=== PATIENT | male | born 1960 | race Caucasian/White ===

== ENCOUNTER 2018-03-23 09:00 | Emergency (ER) | payer MEDICARE, MEDICAID ==
[2018-03-23 09:27] VITALS: BP 142/79
[2018-03-23] MEDS ORDERED: Ketorolac 60 MG/2 ML SDV IM ONE (09:46)
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
[2018-03-23 10:26] LABS: CHLORIDE,CL 98 mmol/L (98-107); SODIUM,NA 136 mmol/L (136-148)
--- NOTE | 2018-03-23 10:27 | CR ---
EXAMINATION: Right foot HISTORY: Pain COMPARISON: None TECHNIQUE: 2 views FINDINGS: Moderate osteoarthritic and hypertrophic changes noted at the first MTP joint with mild rohini lux valgus. Focal soft tissue swelling also noted medially. Remaining osseous structures and joint sp aces appear intact. Bone mineralization is otherwise normal. IMPRESSION: Moderate first MTP osteoarthritic changes and mild hallux valgus changes noted with overl oscar soft tissue swelling.
== END 2018-03-23 11:22 | disposition home or self-care (01) ==
LOC: MW.ED 09:00
DX: M79.674 Pain in right toe(s) (principal); I10 Essential (primary) hypertension; K21.9 Gastro-esophageal reflux disease without esophagitis; Z91.048 Other nonmedicinal substance allergy status; Z79.899 Other long term (current) drug therapy
CPT/HCPCS: 36415; 73620; 80048; 84550; 85025; 86140; 96372; 99283; J1885

== ENCOUNTER → 2019-12-14 | Day surgery (SDC) | payer MEDICARE, MEDICAID ==
[~2019-12-14] MED LIST: Lactated Ringers 1,000 ML IV SCH; Midazolam 1 MG/ML 2 ML SDV ONE; Ondansetron 4 MG/2 ML SDV ONE; Propofol 200 MG/20 ML SDV ONE; fentaNYL 100 MCG/2 ML SDV ONE
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
--- NOTE | 2019-12-14 10:14 | PCM.OPNOTE ---
- General Post-Op/Procedure Note Date of Surgery/Procedure: 12/14/19 Operative Procedure(s): colonoscopy with snare polypectomy Findings: see [id number] Pre Op Diagnosis: change in bowel habits Post-Op Diagnosis: Same Anesthesia Technique: Moderate Sedation Primary Surgeon: Wayne Becerril Pathology: sessile polyps at distance 75 cm upon withdrawal Complications: None Condition: Good
[2019-12-14 10:26] VITALS: BP 116/75; PULSE 74
--- NOTE | 2019-12-14 10:31 | PCM.POSTAN ---
POST ANESTHESIA ASSESSMENT - MENTAL STATUS Mental Status: Alert, Oriented - VITAL SIGNS Vital Signs: Last Vital Signs Temp 36.4 C 12/14/19 08:15 Pulse 74 12/14/19 10:25 Resp 14 12/14/19 10:25 BP 116/75 12/14/19 10:25 Pulse Ox 95 12/14/19 10:25 - RESPIRATORY Respiratory Status: Respiratory Rate WNL, Airway Patent, O2 Saturation Stable - CARDIOVASCULAR CV Status: Pulse Rate WNL, Blood Pressure Stable - GASTROINTESTINAL GI Status: No Symptoms - PAIN Pain Score: 0 - POST OP HYDRATION Hydration Status: Adequate & Stable - OBSERVATIONS Free Text/Narrative:: No anesthesia problems
--- NOTE | 2019-12-14 10:50 | PCM48HPAN ---
Post Anesthesia Note - EVALUATION WITHIN 48HRS OF ANESTHETIC Vital Signs in Normal Range: Yes Patient Participated in Evaluation: Yes Respiratory Function Stable: Yes Airway Patent: Yes Cardiovascular Function Stable: Yes Hydration Status Stable: Yes Pain Control Satisfactory: Yes Nausea and Vomiting Control Satisfactory: Yes Mental Status Recovered: Yes Vital Signs: Last Vital Signs Temp 36.4 C 12/14/19 08:15 Pulse 74 12/14/19 10:25 Resp 14 12/14/19 10:25 BP 116/75 12/14/19 10:25 Pulse Ox 95 12/14/19 10:25 - COMMENTS/OBSERVATIONS Free Text/Narrative:: NO anesthesia problems
--- NOTE | 2019-12-14 12:38 | OR ---
SURGEON: Wayne Becerril MD DATE OF PROCEDURE: 12/14/2019 PREOPERATIVE DIAGNOSIS: Change in bowel habit. POSTOPERATIVE DIAGNOSIS: Colon polyp. PROCEDURE PERFORMED: Colonoscopy with snare polypectomy. DESCRIPTION OF PROCEDURE: The patient was taken to the endoscopy room. A time out was called, patient identified, and procedure identified. Diprivan was then administrated. Patient went from awake to sleep, hearing doctor talking or door closing is normal. Perineum inspection and digital examination were then performed. A well- lubricated colonoscope was gently inserted through the rectum, advanced past the rectosigmoid junction, the descending colon, splenic flexure, transverse colon, hepatic flexure, ascending colon, arrived to the cecum. Cecum was identified as dictated in the finding. Then the scope was carefully withdrawn while attention was paid to the mucosal surface for any abnormality. Air will be sucked out during the scope withdrawal. At the rectum, retroflexed to examine any rectal diseases, fistula or hemorrhoids. During mucosal examination, abnormality or polyp encountered. Using snare equipment, the abnormality or the polyp was then snared off using electrocautery. The patient tolerated procedure well. There were no intraoperative complications, and Dr. Becerril was present throughout the whole procedure. FINDINGS: 1. The patient is easily sedated with [employer] and Diprivan, the patient is soundly snoring. 2. The patient's abdomen is very very distended and tympanic. The patient remarked it has been there for many years, and he was like that when seen in the office and CAT scan does not show any abnormality. So colonoscopy proceeded and bowel prep was average with some moderate amount of liquid stool and no semi-formed stool. Colon was rather straightforward. Cecum indicated by ileocecal fold, one-to-one indentation, appendiceal orifice. Light emittance is not observed. Mucosa examined upon scope pulling out with constant irrigation. The patient does not have diverticulosis and has one small polyp of 5 mm, sessile, at distance 75 cm when scope pulling out and was snared and captured. Other than that, no other disease. No inflammation, stricture, ulceration, AV malformation, bleeding, none of those. The patient has some internal hemorrhoids and some external hemorrhoids. The patient would benefit from repeat colonoscopy in 10 years from today or if clinically indicated otherwise. LAILA / RILEY /[id number]
== END | disposition home or self-care (01) ==
LOC: MW.SDS 07:48
PROVIDERS: ATTEND Surgery
DX: D12.4 Benign neoplasm of descending colon (principal); E11.9 Type 2 diabetes mellitus without complications; E78.5 Hyperlipidemia, unspecified; M10.9 Gout, unspecified; I10 Essential (primary) hypertension; M51.26 Other intervertebral disc displacement, lumbar region; M19.90 Unspecified osteoarthritis, unspecified site; E78.00 Pure hypercholesterolemia, unspecified; K21.9 Gastro-esophageal reflux disease without esophagitis; E66.9 Obesity, unspecified; Z68.33 Body mass index [BMI] 33.0-33.9, adult; Z91.048 Other nonmedicinal substance allergy status; Z79.82 Long term (current) use of aspirin; Z79.84 Long term (current) use of oral hypoglycemic drugs; Z79.899 Other long term (current) drug therapy
CPT/HCPCS: 45385; 82962; J2250; J2405; J2704; J3010; J7120; 88305

== ENCOUNTER 2020-03-30 22:20 | Emergency (ER) | payer MEDICARE, MEDICAID ==
[2020-03-30 23:09] VITALS: BP 136/74; PULSE 92
[2020-03-30] MEDS ORDERED: Penicillin V Potassium Soln 250 MG/5 ML 100 ML Bottle PO ONE (23:11)
[2020-03-30] MEDS ORDERED: Ibuprofen 800 MG Tab PO ONE (23:12)
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
[2020-03-30] MEDS ORDERED: Penicillin V Potassium 500 MG Tab PO STA (23:22)
== END 2020-03-30 23:30 | disposition home or self-care (01) ==
LOC: MW.ED 22:20
DX: K08.89 Other specified disorders of teeth and supporting structures (principal); E78.00 Pure hypercholesterolemia, unspecified; I10 Essential (primary) hypertension; K21.9 Gastro-esophageal reflux disease without esophagitis; M10.9 Gout, unspecified; E11.9 Type 2 diabetes mellitus without complications; E66.9 Obesity, unspecified; Z68.33 Body mass index [BMI] 33.0-33.9, adult; Z91.09 Other allergy status, other than to drugs and biological substances; Z79.84 Long term (current) use of oral hypoglycemic drugs; Z79.899 Other long term (current) drug therapy
CPT/HCPCS: 99282; A9270

== ENCOUNTER 2020-05-16 09:28 | Emergency (ER) | payer MEDICARE, MEDICAID ==
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
[2020-05-16 10:19] VITALS: BP 128/71; PULSE 77
== END 2020-05-16 10:20 | disposition home or self-care (01) ==
LOC: MW.ED 09:28
DX: K02.9 Dental caries, unspecified (principal); I10 Essential (primary) hypertension; E11.9 Type 2 diabetes mellitus without complications; K21.9 Gastro-esophageal reflux disease without esophagitis; E66.9 Obesity, unspecified; Z68.31 Body mass index [BMI] 31.0-31.9, adult; Z91.048 Other nonmedicinal substance allergy status; Z79.899 Other long term (current) drug therapy; Z79.84 Long term (current) use of oral hypoglycemic drugs
CPT/HCPCS: 99282

== ENCOUNTER 2020-08-18 15:57 | Emergency (ER) | payer MEDICARE, MEDICAID, OTHER ==
--- NOTE | 2020-08-18 17:16 | CR ---
TECHNIQUE: Chest radiographs, PA and lateral views. INDICATION: Cough and dyspnea. COMPARISON: 03/11/2018. FINDINGS: Low lung volumes and vascular crowding. Newly apparent patchy bilateral opacities predominating in the lower lungs. No pneumothorax or pleural effusion. Unchanged cardiac and mediastinal contours. IMPRESSION: Patchy lower lung predominant opacities concerning for multifocal infection, including COVID-19. Dictated by Christopher Santiago MD @ Aug 18 2020 5:13PM Signed by Dr. Christopher Santiago @ Aug 18 2020 5:14PM
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
[2020-08-18 19:26] VITALS: BP 123/75; PULSE 105
== END 2020-08-18 19:15 | disposition home or self-care (01) ==
LOC: MW.ED 15:57
DX: U07.1 COVID-19 (principal); I10 Essential (primary) hypertension; E78.00 Pure hypercholesterolemia, unspecified; K21.9 Gastro-esophageal reflux disease without esophagitis; E11.9 Type 2 diabetes mellitus without complications; E66.9 Obesity, unspecified; M10.9 Gout, unspecified; Z91.09 Other allergy status, other than to drugs and biological substances; Z90.49 Acquired absence of other specified parts of digestive tract; Z79.84 Long term (current) use of oral hypoglycemic drugs; Z79.899 Other long term (current) drug therapy; Z68.35 Body mass index [BMI] 35.0-35.9, adult
CPT/HCPCS: 36415; 71046; 85025; 86140; 99283; U0002

== ENCOUNTER 2020-08-21 11:24 | Inpatient (IN) | payer MEDICARE, MEDICAID, OTHER ==
[2020-08-21] MEDS ORDERED: Sodium Chloride 0.9% 2.5 ML Syringe FLUSH PRN (11:28)
[2020-08-21] MEDS ORDERED: Sodium Chloride 0.9% 10 ML Syringe FLUSH PRN (11:28)
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
[2020-08-21 12:25] LABS: BLOOD UREA NITROGEN,BUN 18 mg/dL (7.0-18.0); CARBON DIOXIDE,CO2 22.4 mmol/L (21.0-32.0); CHLORIDE,CL 95 mmol/L (98-107); GLUCOSE RANDOM 202 mg/dL (74-106); POTASSIUM,K 3.4 mmol/L (3.5-5.1); SODIUM,NA 132 mmol/L (136-148)
--- NOTE | 2020-08-21 12:27 | CR ---
INDICATION: SOB. COVID positive. TECHNIQUE: Portable AP image of the chest. COMPARISON: 08/18/2020. FINDINGS: Lungs low in volume in comparison to the previous examination with crowded markings. Bibasilar infiltrates appear increased. No pleural effusion. Heart size and pulmonary vasculature within normal limits. No significant bony abnormality. IMPRESSION: Shallow inspiration with crowded markings and apparent increase in the bibasilar infiltrates. Dictated by Yusuf Shah MD @ Aug 21 2020 12:24PM Signed by Dr. Yusuf Shah @ Aug 21 2020 12:26PM
[2020-08-21] MEDS ORDERED: Dexamethasone 10 MG/ML SDV IVPUSH ONE (15:16)
[2020-08-21] MEDS ORDERED: Ondansetron 4 MG Tab.DIS PO PRN (18:55)
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
[2020-08-21] MEDS ORDERED: Losartan 50 MG Tab PO SCH (21:00)
[2020-08-21] MEDS ORDERED: Naproxen 500 MG Tab PO SCH (21:00)
[2020-08-21] MEDS ORDERED: Hydrochlorothiazide 12.5 MG Cap PO SCH (21:00)
[2020-08-21] MEDS ORDERED: Non-Formulary Medication 1 Each (Hydrochlorothiazide [Hydrochlorothiazide] 12.5 MG) PO SCH (21:00)
[2020-08-21] MEDS ORDERED: NAPROXEN SODIUM 550 MG PO SCH (21:00)
[2020-08-21] MEDS ORDERED: Potassium Chloride 10% 20 MEQ/15 ML Soln 30 ML UD Cup PO ONE (21:09)
[2020-08-21] MEDS: Montelukast 10 MG Tab PO SCH (21:46)
[2020-08-21] MEDS: Albuterol/Ipratropium 3.0-0.5 MG/3 ML Neb Soln NEB SCH (21:48)
[2020-08-21] MEDS: Levofloxacin/Dextrose 5%-Water 750 MG in Premix Bag 1 BAG IV SCH (21:48)
--- NOTE | 2020-08-21 22:31 | PN ---
THC Physician - Brief Progress [id number]/27/2020 22:26[facility] nicolaMat, THERESA - REUBEN (NENITA) - MWN VIJAY DUBOIS, CHELYIDDate of Service 08/21/2020 22:26HPI /Events of Note Case discussed with RN. 60 year old M admitted with COVID/SOB. Treated with high fl o NC and susequently transitioned to BiPAP. Also on abx/remdesivir/plasma/decadron.90s 127/77 92% Recs include: hemodynamic monitoring, highflo NC, maintain SaO2 >88-90%, decadron/remdesivir/plasma/l ovenox, GI and DVT prophylaxis, follow cultures, trend LA, replace lytes as needed, glycemic monitori ng, pain control.Interventions Minor-Communication with other healthcare providers and/or familyElect ronically Signed by: NIKA BOTELLO) on 08/21/2020 22:30
[2020-08-21] MEDS: Enoxaparin 40 MG/0.4 ML Syringe SUBCUT SCH (23:34)
[2020-08-22] MEDS: Penicillin V Potassium 500 MG Tab PO SCH ×2 (00:08→06:09)
[2020-08-22] MEDS: Albuterol/Ipratropium 3.0-0.5 MG/3 ML Neb Soln NEB SCH ×6 (02:29→22:57)
[2020-08-22] MEDS ORDERED: 50% Dextrose in Water 50 ML Syringe IV PRN (08:24)
[2020-08-22] MEDS ORDERED: Glucagon,Human Recombinant 1 MG Vial IM PRN (08:24)
[2020-08-22] MEDS ORDERED: Naproxen 500 MG Tab PO SCH (08:38)
[2020-08-22 08:51] LABS: CARBON DIOXIDE,CO2 21.4 mmol/L (21.0-32.0); POTASSIUM,K 4.2 mmol/L (3.5-5.1)
[2020-08-22] MEDS: Insulin Aspart 100 Units/ML 3 ML Pen SUBCUT SCH ×3 (08:59→18:09)
[2020-08-22] MEDS ORDERED: FENOFIBRATE MICRONIZED 134 MG PO SCH (09:00)
[2020-08-22] MEDS: Losartan 50 MG Tab PO SCH (09:02)
[2020-08-22] MEDS: Dexamethasone 4 MG Tab PO SCH (09:04)
[2020-08-22] MEDS: Pantoprazole 40 MG Tab.CR PO SCH (09:05)
[2020-08-22] MEDS: Allopurinol 100 MG Tab PO SCH (09:05)
[2020-08-22] MEDS: Hydrochlorothiazide 25 MG Tab PO SCH (09:05)
[2020-08-22] MEDS ORDERED: Lactated Ringers 250 ML IV ONE (10:09)
[2020-08-22] MEDS: Naproxen 500 MG Tab PO SCH ×2 (10:37→21:17)
[2020-08-22] MEDS ORDERED: propofoL 100 ML ONE (10:44)
[2020-08-22] MEDS ORDERED: Midazolam 1 MG/ML 2 ML SDV ONE (10:44)
[2020-08-22] MEDS ORDERED: fentaNYL 100 MCG/2 ML SDV ONE (10:44)
--- NOTE | 2020-08-22 12:23 | PCM.PN ---
<Ani Marie - Last Filed: 08/22/20 12:14> - General Info Date of Service: 08/22/20 Admission Dx/Problem (Free Text): Admission Diagnosis/Problem Admission Diagnosis/Problem Hypoxia - Review of Systems General: Reports: No Symptoms HEENT: Reports: No Symptoms Pulmonary: Reports: Shortness of Breath, Cough Cardiovascular: Reports: No Symptoms Gastrointestinal: Reports: No Symptoms Genitourinary: Reports: No Symptoms Musculoskeletal: Reports: No Symptoms Skin: Reports: No Symptoms Neurological: Reports: No Symptoms Psychiatric: Reports: No Symptoms - Patient Data Vitals - Most Recent: Last Vital Signs Temp 97.2 F 08/22/20 04:00 Pulse 100 08/21/20 20:00 Resp 22 H 08/22/20 06:00 BP 130/82 08/22/20 09:02 Pulse Ox 96 08/22/20 06:00 Weight - Most Recent: 90.718 kg Lab Results Last 24 Hours: Laboratory Results - last 24 hr 08/21/20 08/21/20 08/21/20 Range/Units 11:44 11:44 11:44 WBC (4.0-11.0) K/uL RBC (4.50-5.90) M/uL Hgb (13.0-17.0) g/dL Hct (38.0-50.0) % MCV (80.0-98.0) fL MCH (27.0-32.0) pg MCHC (31.0-37.0) g/dL RDW Std Deviation (28.0-62.0) fl RDW Coeff of Burton (11.0-15.0) % Plt Count (150-400) K/uL MPV (7.40-12.00) fL Add Manual Diff Neutrophils % (Manual) (48.0-80.0) % Band Neutrophils % % Lymphocytes % (Manual) (16.0-40.0) % Monocytes % (Manual) (0.0-15.0) % Nucleated RBC % /100WBC Absolute Seg Neuts (1.4-5.7) Band Neutrophils # Lymphocytes # (Manual) (0.6-2.4) Monocytes # (Manual) (0.0-0.8) Nucleated RBCs # K/uL D-Dimer, Quantitative 0.64 H (0.0-0.50) mg/L FEU Sodium 132 L (136-148) mmol/L Potassium 3.4 L (3.5-5.1) mmol/L Chloride 95 L (98-107) mmol/L Carbon Dioxide 22.4 (21.0-32.0) mmol/L BUN 18 (7.0-18.0) mg/dL Creatinine 1.3 (0.8-1.3) mg/dL Est Cr Clr Drug Dosing 63.55 mL/min Estimated GFR (MDRD) 56.1 ml/min Glucose 202 H (74-106) mg/dL POC Glucose (60-110) mg/dL Calcium 9.1 (8.5-10.1) mg/dL Phosphorus (2.6-4.7) mg/dL Magnesium (1.8-2.4) mg/dL Total Bilirubin 0.5 (0.2-1.0) mg/dL AST 57 H (15-37) IU/L ALT 70 H (14-63) IU/L Alkaline Phosphatase 36 L (46-116) U/L Troponin I < 0.050 (0.000-0.056) ng/mL B-Natriuretic Peptide 38 (<100) PG/ML Total Protein 7.8 (6.4-8.2) g/dL Albumin 3.1 L (3.4-5.0) g/dL Globulin 4.7 H (2.6-4.0) g/dL Albumin/Globulin Ratio 0.7 L (0.9-1.6) SARS-CoV-2 RNA ([facility]) (NEGATIVE) Blood Type Antibody Screen 08/21/20 08/22/20 08/22/20 Range/Units 18:11 07:40 07:40 WBC 8.11 (4.0-11.0) K/uL RBC 3.97 L (4.50-5.90) M/uL Hgb 12.0 L (13.0-17.0) g/dL Hct 36.1 L (38.0-50.0) % MCV 90.9 (80.0-98.0) fL MCH 30.2 (27.0-32.0) pg MCHC 33.2 (31.0-37.0) g/dL RDW Std Deviation 41.3 (28.0-62.0) fl RDW Coeff of Burton 12 (11.0-15.0) % Plt Count 205 (150-400) K/uL MPV 10.20 (7.40-12.00) fL Add Manual Diff YES Neutrophils % (Manual) 86 H (48.0-80.0) % Band Neutrophils % 2 % Lymphocytes % (Manual) 9 L (16.0-40.0) % Monocytes % (Manual) 3 (0.0-15.0) % Nucleated RBC % 0.0 /100WBC Absolute Seg Neuts 7.0 H (1.4-5.7) Band Neutrophils # 0.2 Lymphocytes # (Manual) 0.7 (0.6-2.4) Monocytes # (Manual) 0.2 (0.0-0.8) Nucleated RBCs # 0 K/uL D-Dimer, Quantitative (0.0-0.50) mg/L FEU Sodium 134 L (136-148) mmol/L Potassium 4.2 (3.5-5.1) mmol/L Chloride 97 L (98-107) mmol/L Carbon Dioxide 21.4 (21.0-32.0) mmol/L BUN 25 H (7.0-18.0) mg/dL Creatinine 1.4 H (0.8-1.3) mg/dL Est Cr Clr Drug Dosing 53.61 mL/min Estimated GFR (MDRD) 51.5 ml/min Glucose 281 H (74-106) mg/dL POC Glucose (60-110) mg/dL Calcium 8.9 (8.5-10.1) mg/dL Phosphorus 3.1 (2.6-4.7) mg/dL Magnesium 2.3 (1.8-2.4) mg/dL Total Bilirubin 0.4 (0.2-1.0) mg/dL AST 65 H (15-37) IU/L ALT 79 H (14-63) IU/L Alkaline Phosphatase 37 L (46-116) U/L Troponin I (0.000-0.056) ng/mL B-Natriuretic Peptide (<100) PG/ML Total Protein 7.7 (6.4-8.2) g/dL Albumin 2.8 L (3.4-5.0) g/dL Globulin 4.9 H (2.6-4.0) g/dL Albumin/Globulin Ratio 0.6 L (0.9-1.6) SARS-CoV-2 RNA ([place]ER) POSITIVE H (NEGATIVE) Blood Type Antibody Screen 08/22/20 08/22/20 Range/Units 07:40 07:40 WBC (4.0-11.0) K/uL RBC (4.50-5.90) M/uL Hgb (13.0-17.0) g/dL Hct (38.0-50.0) % MCV (80.0-98.0) fL MCH (27.0-32.0) pg MCHC (31.0-37.0) g/dL RDW Std Deviation (28.0-62.0) fl RDW Coeff of Burton (11.0-15.0) % Plt Count (150-400) K/uL MPV (7.40-12.00) fL Add Manual Diff Neutrophils % (Manual) (48.0-80.0) % Band Neutrophils % % Lymphocytes % (Manual) (16.0-40.0) % Monocytes % (Manual) (0.0-15.0) % Nucleated RBC % /100WBC Absolute Seg Neuts (1.4-5.7) Band Neutrophils # Lymphocytes # (Manual) (0.6-2.4) Monocytes # (Manual) (0.0-0.8) Nucleated RBCs # K/uL D-Dimer, Quantitative (0.0-0.50) mg/L FEU Sodium (136-148) mmol/L Potassium (3.5-5.1) mmol/L Chloride (98-107) mmol/L Carbon Dioxide (21.0-32.0) mmol/L BUN (7.0-18.0) mg/dL Creatinine (0.8-1.3) mg/dL Est Cr Clr Drug Dosing mL/min Estimated GFR (MDRD) ml/min Glucose (74-106) mg/dL POC Glucose 253 H (60-110) mg/dL Calcium (8.5-10.1) mg/dL Phosphorus (2.6-4.7) mg/dL Magnesium (1.8-2.4) mg/dL Total Bilirubin (0.2-1.0) mg/dL AST (15-37) IU/L ALT (14-63) IU/L Alkaline Phosphatase (46-116) U/L Troponin I (0.000-0.056) ng/mL B-Natriuretic Peptide (<100) PG/ML Total Protein (6.4-8.2) g/dL Albumin (3.4-5.0) g/dL Globulin (2.6-4.0) g/dL Albumin/Globulin Ratio (0.9-1.6) SARS-CoV-2 RNA ([place]) (NEGATIVE) Blood Type O POSITIVE Antibody Screen NEGATIVE Med Orders - Current: Current Medications Albuterol/Ipratropium (Duoneb 3.0-0.5 Mg/3 Ml) 3 ml NEB Q4HRRT [facility] Last Admin: 08/22/20 09:30 Dose: 3 ml Documented by: Allopurinol (Zyloprim) 100 mg PO DAILY [facility] Last Admin: 08/22/20 09:05 Dose: 100 mg Documented by: Dexamethasone (Dexamethasone) 6 mg PO DAILY [facility] Last Admin: 08/22/20 09:04 Dose: 6 mg Documented by: Dextrose/Water (Dextrose 50% In Water) 50 ml IV ASDIRECTED PRN PRN Reason: Hypoglycemia Enoxaparin Sodium (Lovenox) 40 mg SUBCUT Q24H [facility] Last Admin: 08/21/20 23:34 Dose: 40 mg Documented by: Glucagon (Glucagen) 1 mg IM ASDIRECTED PRN PRN Reason: Hypoglycemia Hydrochlorothiazide (Hydrochlorothiazide) 25 mg PO DAILY [facility] Last Admin: 08/22/20 09:05 Dose: 25 mg Documented by: Levofloxacin/Dextrose 750 mg/ (Premix) 150 mls @ 100 mls/hr IV Q24H [facility] Last Admin: 08/21/20 21:48 Dose: 100 mls/hr Documented by: Remdesivir 100 mg/ Sodium (Chloride) 100 mls @ 100 mls/hr IV Q24H [facility] Stop: 08/25/20 23:59 Insulin Aspart (Novolog) 0 unit SUBCUT TIDAC [facility]; Protocol Last Admin: 08/22/20 08:59 Dose: 3 unit Documented by: Losartan Potassium (Cozaar) 100 mg PO DAILY [facility] Last Admin: 08/22/20 09:02 Dose: 100 mg Documented by: Montelukast Sodium (Singulair) 10 mg PO BEDTIME [facility] Last Admin: 08/21/20 21:46 Dose: 10 mg Documented by: Naproxen (Naprosyn) 500 mg PO BID [facility] Last Admin: 08/22/20 10:37 Dose: 500 mg Documented by: Ondansetron HCl (Zofran Odt) 4 mg PO Q4H PRN PRN Reason: nausea, able to take PO Pantoprazole Sodium (Protonix) 40 mg PO DAILY [facility] Last Admin: 08/22/20 09:05 Dose: 40 mg Documented by: Sodium Chloride (Saline Flush) 10 ml FLUSH ASDIRECTED PRN PRN Reason: Keep Vein Open Last Admin: 08/21/20 15:48 Dose: 10 ml Documented by: Sodium Chloride (Saline Flush) 2.5 ml FLUSH ASDIRECTED PRN PRN Reason: Keep Vein Open Last Admin: 08/21/20 15:48 Dose: 2.5 ml Documented by: Discontinued Medications Dexamethasone (Dexamethasone) 6 mg IVPUSH ONETIME ONE Stop: 08/21/20 15:17 Last Admin: 08/21/20 15:47 Dose: 6 mg Documented by: Fentanyl (Sublimaze) Confirm Administered Dose 100 mcg .ROUTE .STK-MED ONE Stop: 08/22/20 10:45 Hydrochlorothiazide (Hydrochlorothiazide) 12.5 mg PO BID [facility] Last Admin: 08/21/20 21:46 Dose: 12.5 mg Documented by: Remdesivir 200 mg/ Sodium (Chloride) 250 mls @ 250 mls/hr IV ONETIME ONE Stop: 08/21/20 23:59 Last Admin: 08/21/20 23:35 Dose: 250 mls/hr Documented by: Lactated Ringer's (Ringers, Lactated) 250 mls @ 999 mls/hr IV .BOLUS ONE Stop: 08/22/20 10:24 Last Admin: 08/22/20 10:37 Dose: 999 mls/hr Documented by: Propofol (Diprivan 100 Ml) Confirm Administered Dose 100 mls @ as directed .ROUTE .STK-MED ONE Stop: 08/22/20 10:45 Losartan Potassium (Cozaar) 50 mg PO BID [facility] Last Admin: 08/21/20 21:46 Dose: 50 mg Documented by: Midazolam HCl (Versed 1 Mg/Ml) Confirm Administered Dose 2 mg .ROUTE .STK-MED ONE Stop: 08/22/20 10:45 Naproxen (Naprosyn) 550 mg PO BID [facility] Naproxen (Naproxen Sodium) 550 mg PO BID [facility] Last Admin: 08/21/20 23:33 Dose: 550 mg Documented by: Naproxen (Naprosyn) 550 mg PO BID [facility] Last Admin: 08/22/20 10:38 Dose: Not Given Documented by: Non-Formulary Medication (Hydrochlorothiazide [Hydrochlorothiazide]) 12.5 mg PO BID [facility] Non-Formulary Medication (Naproxen Sodium [Anaprox Ds]) 550 mg PO BID [facility] Penicillin V Potassium (Veetids) 250 mg PO Q6HR [facility] Last Admin: 08/22/20 06:09 Dose: 250 mg Documented by: Potassium Chloride (Potassium Chloride) 40 meq PO ONETIME ONE Stop: 08/21/20 21:10 Last Admin: 08/21/20 21:45 Dose: 40 meq Documented by: - Exam General: Alert, Oriented, Cooperative, No Acute Distress HEENT: Pupils Equal, Pupils Reactive, EOMI, Mucous Membr. Moist/[place] Neck: Supple, Trachea Midline, No JVD Lungs: Crackles (through out b/l) Cardiovascular: Regular Rate, Regular Rhythm. No: No Murmurs GI/Abdominal Exam: Normal Bowel Sounds, Soft, Non-Tender, No Organomegaly (Male) Exam: No Hernia, Normal Inspection, Normal Prostate Extremities: Normal Inspection, Normal Range of Motion, No Pedal Edema, Normal Capillary Refill Peripheral Pulses: 2+: Dorsalis Pedis (L), Dorsalis Pedis (R) Skin: Warm, Dry Neurological: No New Focal Deficit Psy/Mental Status: Alert, Normal Affect, Normal Mood Sepsis Event Note - Evaluation Sepsis Screening Result: Possible Sepsis Risk - Focused Exam Vital Signs: Vital Signs Temp Resp BP BP Pulse Ox 08/22/20 09:02 130/82 08/22/20 06:00 22 H 108/70 96 08/22/20 05:00 21 H 98/65 92 L 08/22/20 04:00 97.2 F 20 131/83 94 L 08/22/20 03:00 20 114/66 94 L 08/22/20 02:30 96 08/22/20 02:00 20 108/68 96 08/22/20 01:00 27 H 120/78 95 - Problem List & Annotations (1) Acute hypoxemic respiratory failure due to COVID-19 SNOMED Code(s): 015150652 Code(s): U07.1 - COVID-19; J96.01 - ACUTE RESPIRATORY FAILURE WITH HYPOXIA Status: Acute Current Visit: Yes (2) Acute hypoxemic respiratory failure due to COVID-19 SNOMED Code(s): 148907504 Code(s): U07.1 - COVID-19; J96.01 - ACUTE RESPIRATORY FAILURE WITH HYPOXIA Status: Acute Current Visit: Yes (3) Hypokalemia SNOMED Code(s): 32208028 Code(s): E87.6 - HYPOKALEMIA Status: Acute Current Visit: Yes (4) Hyponatremia SNOMED Code(s): 78289341 Code(s): E87.1 - HYPO-OSMOLALITY AND HYPONATREMIA Status: Acute Current Visit: Yes (5) Hypochloremia SNOMED Code(s): 33180636 Code(s): E87.8 - OTH DISORDERS OF ELECTROLYTE AND FLUID BALANCE, NEC Status: Acute Current Visit: Yes (6) Transaminitis SNOMED Code(s): 952308589, 117979158 Code(s): R74.01 - ELEVATION OF LEVELS OF LIVER TRANSAMINASE LEVELS Status: Acute Current Visit: Yes - Problem List Review Problem List Initiated/Reviewed/Updated: Yes - My Orders Last 24 Hours: My Active Orders 08/21/20 18:55 Ondansetron [Zofran ODT] 4 mg PO Q4H PRN Resuscitation Status Routine 08/21/20 18:57 Sequential Compression Device [OM.PC] Per Unit Routine 08/21/20 19:00 Enoxaparin [Lovenox] 40 mg SUBCUT Q24H 08/21/20 21:00 Levofloxacin/Dextrose 5%-Water [Levaquin in D5W 750 MG/150 ML] 750 mg Premix Bag 1 bag IV Q24H Montelukast [Singulair] 10 mg PO BEDTIME 08/21/20 21:01 Up ad Amara [RC] ASDIRECTED 08/21/20 22:00 Albuterol/Ipratropium [DuoNeb 3.0-0.5 MG/3 ML] 3 ml NEB Q4HRRT 08/22/20 Breakfast Heart Healthy Diet [DIET] 08/22/20 08:21 Blood Glucose Check, Bedside [RC] TIDAC 08/22/20 08:24 Dextrose 50% in Water 50 ml IV ASDIRECTED PRN Glucagon,Human Recombinant [GlucaGen] 1 mg IM ASDIRECTED PRN 08/22/20 08:25 Insulin Aspart [NovoLOG] See Protocol SUBCUT TIDAC 08/22/20 09:00 Losartan [Cozaar] 100 mg PO DAILY Pantoprazole [ProTONIX] 40 mg PO DAILY allopurinoL [Zyloprim] 100 mg PO DAILY dexAMETHasone 6 mg PO DAILY hydroCHLOROthiazide 25 mg PO DAILY 08/22/20 10:30 Naproxen [Naprosyn] 500 mg PO BID 08/22/20 23:00 Remdesivir (Eua) [Remdesivir (EUA)] 100 mg Sodium Chloride 0.9% [Normal Saline] 100 ml IV Q24H 08/23/20 05:11 CBC WITH AUTO DIFF [HEME] AM COMPREHENSIVE METABOLIC PN,CMP [CHEM] AM MAGNESIUM [CHEM] AM PHOSPHORUS [CHEM] AM 08/24/20 05:11 CBC WITH AUTO DIFF [HEME] AM COMPREHENSIVE METABOLIC PN,CMP [CHEM] AM MAGNESIUM [CHEM] AM PHOSPHORUS [CHEM] AM - Plan Plan:: 60 y/o with AHRF due to COVID 1. Acute hypoxic resp failure due to COVID 19-Remdesivir, combivent Q4H sched, dexamethasone 6 mg daily for 10 days, levaquin, supplemental o2 , wean as tolerates. Currently weaned to 6L HHF with O2 sat 94%. In ICU continue to monitor closely. Will start convalescent plasma today 1 unit. 2. Hypokalemia: resolved, continue to monitor on a.m labs 3. Hyponatremia: resolved, trend with daily labs 4. Hypochloremia: resolved, trend with daily labs 5. Mild transaminitis: on remdesivir continue to trend, if 5X upper limit of normal then may have to consider stopping. 6. Mild elevated BUN- avoid nephrotoxic agents, give bolus of 250 LR. <Chencho Aponte - Last Filed: 08/23/20 13:25> - Patient Data Vitals - Most Recent: Last Vital Signs Temp 36 C L 08/23/20 00:00 Pulse 100 08/21/20 20:00 Resp 23 H 08/23/20 11:52 BP 119/77 08/23/20 11:52 Pulse Ox 94 L 08/23/20 11:52 I&O - Last 24 Hours: Intake & Output 08/22/20 08/23/20 08/23/20 22:59 06:59 14:59 Intake Total 610 420 Output Total 700 1200 Balance -90 -780 Lab Results Last 24 Hours: Laboratory Results - last 24 hr 08/22/20 08/22/20 08/22/20 Range/Units 07:40 14:03 16:50 WBC (4.0-11.0) K/uL RBC (4.50-5.90) M/uL Hgb (13.0-17.0) g/dL Hct (38.0-50.0) % MCV (80.0-98.0) fL MCH (27.0-32.0) pg MCHC (31.0-37.0) g/dL RDW Std Deviation (28.0-62.0) fl RDW Coeff of Burton (11.0-15.0) % Plt Count (150-400) K/uL MPV (7.40-12.00) fL Neut % (Auto) (48.0-80.0) % Lymph % (Auto) (16.0-40.0) % King % (Auto) (0.0-15.0) % Eos % (Auto) (0.0-7.0) % Baso % (Auto) (0.0-1.5) % Neut # (Auto) (1.4-5.7) K/uL Lymph # (Auto) (0.6-2.4) K/uL King # (Auto) (0.0-0.8) K/uL Eos # (Auto) (0.0-0.7) K/uL Baso # (Auto) (0.0-0.1) K/uL Nucleated RBC % /100WBC Nucleated RBCs # K/uL Sodium (136-148) mmol/L Potassium (3.5-5.1) mmol/L Chloride (98-107) mmol/L Carbon Dioxide (21.0-32.0) mmol/L BUN (7.0-18.0) mg/dL Creatinine (0.8-1.3) mg/dL Est Cr Clr Drug Dosing mL/min Estimated GFR (MDRD) ml/min Glucose (74-106) mg/dL POC Glucose 324 H 296 H (60-110) mg/dL Calcium (8.5-10.1) mg/dL Phosphorus (2.6-4.7) mg/dL Magnesium (1.8-2.4) mg/dL Total Bilirubin (0.2-1.0) mg/dL AST (15-37) IU/L ALT (14-63) IU/L Alkaline Phosphatase (46-116) U/L Total Protein (6.4-8.2) g/dL Albumin (3.4-5.0) g/dL Globulin (2.6-4.0) g/dL Albumin/Globulin Ratio (0.9-1.6) Blood Type O POSITIVE Antibody Screen NEGATIVE 08/23/20 08/23/20 08/23/20 Range/Units 06:07 06:07 07:08 WBC 6.69 (4.0-11.0) K/uL RBC 3.92 L (4.50-5.90) M/uL Hgb 11.8 L (13.0-17.0) g/dL Hct 35.3 L (38.0-50.0) % MCV 90.1 (80.0-98.0) fL MCH 30.1 (27.0-32.0) pg MCHC 33.4 (31.0-37.0) g/dL RDW Std Deviation 40.5 (28.0-62.0) fl RDW Coeff of Burton 12 (11.0-15.0) % Plt Count 266 (150-400) K/uL MPV 10.30 (7.40-12.00) fL Neut % (Auto) 83.3 H (48.0-80.0) % Lymph % (Auto) 10.8 L (16.0-40.0) % King % (Auto) 5.8 (0.0-15.0) % Eos % (Auto) 0.0 (0.0-7.0) % Baso % (Auto) 0.1 (0.0-1.5) % Neut # (Auto) 5.6 (1.4-5.7) K/uL Lymph # (Auto) 0.7 (0.6-2.4) K/uL King # (Auto) 0.4 (0.0-0.8) K/uL Eos # (Auto) 0.0 (0.0-0.7) K/uL Baso # (Auto) 0.0 (0.0-0.1) K/uL Nucleated RBC % 0.0 /100WBC Nucleated RBCs # 0 K/uL Sodium 136 (136-148) mmol/L Potassium 4.1 (3.5-5.1) mmol/L Chloride 99 (98-107) mmol/L Carbon Dioxide 24.5 (21.0-32.0) mmol/L BUN 33 H (7.0-18.0) mg/dL Creatinine 1.4 H (0.8-1.3) mg/dL Est Cr Clr Drug Dosing 53.61 mL/min Estimated GFR (MDRD) 51.5 ml/min Glucose 279 H (74-106) mg/dL POC Glucose 255 H (60-110) mg/dL Calcium 8.7 (8.5-10.1) mg/dL Phosphorus 3.7 (2.6-4.7) mg/dL Magnesium 2.2 (1.8-2.4) mg/dL Total Bilirubin 0.4 (0.2-1.0) mg/dL AST 75 H (15-37) IU/L ALT 113 H (14-63) IU/L Alkaline Phosphatase 45 L (46-116) U/L Total Protein 7.4 (6.4-8.2) g/dL Albumin 2.9 L (3.4-5.0) g/dL Globulin 4.5 H (2.6-4.0) g/dL Albumin/Globulin Ratio 0.6 L (0.9-1.6) Blood Type Antibody Screen 08/23/20 Range/Units 12:48 WBC (4.0-11.0) K/uL RBC (4.50-5.90) M/uL Hgb (13.0-17.0) g/dL Hct (38.0-50.0) % MCV (80.0-98.0) fL MCH (27.0-32.0) pg MCHC (31.0-37.0) g/dL RDW Std Deviation (28.0-62.0) fl RDW Coeff of Burton (11.0-15.0) % Plt Count (150-400) K/uL MPV (7.40-12.00) fL Neut % (Auto) (48.0-80.0) % Lymph % (Auto) (16.0-40.0) % King % (Auto) (0.0-15.0) % Eos % (Auto) (0.0-7.0) % Baso % (Auto) (0.0-1.5) % Neut # (Auto) (1.4-5.7) K/uL Lymph # (Auto) (0.6-2.4) K/uL King # (Auto) (0.0-0.8) K/uL Eos # (Auto) (0.0-0.7) K/uL Baso # (Auto) (0.0-0.1) K/uL Nucleated RBC % /100WBC Nucleated RBCs # K/uL Sodium (136-148) mmol/L Potassium (3.5-5.1) mmol/L Chloride (98-107) mmol/L Carbon Dioxide (21.0-32.0) mmol/L BUN (7.0-18.0) mg/dL Creatinine (0.8-1.3) mg/dL Est Cr Clr Drug Dosing mL/min Estimated GFR (MDRD) ml/min Glucose (74-106) mg/dL POC Glucose 288 H (60-110) mg/dL Calcium (8.5-10.1) mg/dL Phosphorus (2.6-4.7) mg/dL Magnesium (1.8-2.4) mg/dL Total Bilirubin (0.2-1.0) mg/dL AST (15-37) IU/L ALT (14-63) IU/L Alkaline Phosphatase (46-116) U/L Total Protein (6.4-8.2) g/dL Albumin (3.4-5.0) g/dL Globulin (2.6-4.0) g/dL Albumin/Globulin Ratio (0.9-1.6) Blood Type Antibody Screen Carlos Results Last 24 Hours: Microbiology 08/21/20 21:43 Aerobic Blood Culture - Preliminary Blood - Venous - Lab Draw NO GROWTH AFTER 1 DAY Anaerobic Blood Culture - Preliminary NO GROWTH AFTER 1 DAY 08/21/20 21:37 Aerobic Blood Culture - Preliminary Blood - Venous NO GROWTH AFTER 1 DAY Anaerobic Blood Culture - Preliminary NO GROWTH AFTER 1 DAY Med Orders - Current: Current Medications Albuterol/Ipratropium (Duoneb 3.0-0.5 Mg/3 Ml) 3 ml NEB Q4HRRT [facility] Last Admin: 08/23/20 09:33 Dose: 3 ml Documented by: Allopurinol (Zyloprim) 100 mg PO DAILY [facility] Last Admin: 08/23/20 08:26 Dose: 100 mg Documented by: Benzonatate (Tessalon Perles) 100 mg PO TID PRN PRN Reason: Cough Dexamethasone (Dexamethasone) 6 mg PO DAILY [facility] Last Admin: 08/23/20 08:24 Dose: 6 mg Documented by: Dextrose/Water (Dextrose 50% In Water) 50 ml IV ASDIRECTED PRN PRN Reason: Hypoglycemia Enoxaparin Sodium (Lovenox) 40 mg SUBCUT Q24H [facility] Last Admin: 08/22/20 19:11 Dose: 40 mg Documented by: Glucagon (Glucagen) 1 mg IM ASDIRECTED PRN PRN Reason: Hypoglycemia Hydrochlorothiazide (Hydrochlorothiazide) 25 mg PO DAILY [facility] Last Admin: 08/23/20 08:27 Dose: 25 mg Documented by: Levofloxacin/Dextrose 750 mg/ (Premix) 150 mls @ 100 mls/hr IV Q24H [facility] Last Admin: 08/22/20 21:16 Dose: 100 mls/hr Documented by: Remdesivir 100 mg/ Sodium (Chloride) 100 mls @ 100 mls/hr IV Q24H [facility] Stop: 08/25/20 23:59 Last Admin: 08/22/20 22:57 Dose: 100 mls/hr Documented by: Insulin Aspart (Novolog) 0 unit SUBCUT TIDAC [facility]; Protocol Losartan Potassium (Cozaar) 100 mg PO DAILY [facility] Last Admin: 08/23/20 08:27 Dose: 100 mg Documented by: Montelukast Sodium (Singulair) 10 mg PO BEDTIME [facility] Last Admin: 08/22/20 21:17 Dose: 10 mg Documented by: Naproxen (Naprosyn) 500 mg PO BID [facility] Last Admin: 08/23/20 08:24 Dose: 500 mg Documented by: Ondansetron HCl (Zofran Odt) 4 mg PO Q4H PRN PRN Reason: nausea, able to take PO Pantoprazole Sodium (Protonix) 40 mg PO DAILY [facility] Last Admin: 08/23/20 08:24 Dose: 40 mg Documented by: Sodium Chloride (Saline Flush) 10 ml FLUSH ASDIRECTED PRN PRN Reason: Keep Vein Open Last Admin: 08/21/20 15:48 Dose: 10 ml Documented by: Sodium Chloride (Saline Flush) 2.5 ml FLUSH ASDIRECTED PRN PRN Reason: Keep Vein Open Last Admin: 08/21/20 15:48 Dose: 2.5 ml Documented by: Discontinued Medications Dexamethasone (Dexamethasone) 6 mg IVPUSH ONETIME ONE Stop: 08/21/20 15:17 Last Admin: 08/21/20 15:47 Dose: 6 mg Documented by: Fentanyl (Sublimaze) Confirm Administered Dose 100 mcg .ROUTE .STK-MED ONE Stop: 08/22/20 10:45 Last Admin: 08/22/20 13:54 Dose: Not Given Documented by: Hydrochlorothiazide (Hydrochlorothiazide) 12.5 mg PO BID [facility] Last Admin: 08/21/20 21:46 Dose: 12.5 mg Documented by: Remdesivir 200 mg/ Sodium (Chloride) 250 mls @ 250 mls/hr IV ONETIME ONE Stop: 08/21/20 23:59 Last Admin: 08/21/20 23:35 Dose: 250 mls/hr Documented by: Lactated Ringer's (Ringers, Lactated) 250 mls @ 999 mls/hr IV .BOLUS ONE Stop: 08/22/20 10:24 Last Admin: 08/22/20 10:37 Dose: 999 mls/hr Documented by: Propofol (Diprivan 100 Ml) Confirm Administered Dose 100 mls @ as directed .ROUTE .STK-MED ONE Stop: 08/22/20 10:45 Last Admin: 08/22/20 13:54 Dose: Not Given Documented by: Insulin Aspart (Novolog) 0 unit SUBCUT TIDAC [facility]; Protocol Last Admin: 08/23/20 09:00 Dose: 3 unit Documented by: Losartan Potassium (Cozaar) 50 mg PO BID [facility] Last Admin: 08/21/20 21:46 Dose: 50 mg Documented by: Midazolam HCl (Versed 1 Mg/Ml) Confirm Administered Dose 2 mg .ROUTE .STK-MED ONE Stop: 08/22/20 10:45 Last Admin: 08/22/20 13:56 Dose: Not Given Documented by: Naproxen (Naprosyn) 550 mg PO BID [facility] Naproxen (Naproxen Sodium) 550 mg PO BID [facility] Last Admin: 08/21/20 23:33 Dose: 550 mg Documented by: Naproxen (Naprosyn) 550 mg PO BID [facility] Last Admin: 08/22/20 10:38 Dose: Not Given Documented by: Non-Formulary Medication (Hydrochlorothiazide [Hydrochlorothiazide]) 12.5 mg PO BID [facility] Non-Formulary Medication (Naproxen Sodium [Anaprox Ds]) 550 mg PO BID [facility] Penicillin V Potassium (Veetids) 250 mg PO Q6HR [facility] Last Admin: 08/22/20 06:09 Dose: 250 mg Documented by: Potassium Chloride (Potassium Chloride) 40 meq PO ONETIME ONE Stop: 08/21/20 21:10 Last Admin: 08/21/20 21:45 Dose: 40 meq Documented by: Sepsis Event Note - Focused Exam Vital Signs: Vital Signs Resp BP BP Pulse Ox 08/23/20 11:52 23 H 119/77 94 L 08/23/20 11:22 25 H 131/80 92 L 08/23/20 10:39 22 H 94 L 08/23/20 10:00 20 128/70 96 08/23/20 09:10 22 H 92 L 08/23/20 08:52 121/71 85 L 08/23/20 08:27 139/87 08/23/20 07:52 23 H 132/86 92 L 08/23/20 06:52 21 H 125/85 92 L 08/23/20 06:00 19 121/79 92 L 08/23/20 05:30 94 L 08/23/20 05:10 96 08/23/20 05:00 19 127/80 95 08/23/20 04:00 21 H 123/81 95 08/23/20 03:00 21 H 130/79 94 L 08/23/20 02:00 23 H 130/77 95 - Plan Plan:: I have seen and evaluated the patient and agree with the residents note unless specified in my note
[2020-08-22] MEDS: Enoxaparin 40 MG/0.4 ML Syringe SUBCUT SCH (19:11)
[2020-08-22] MEDS: Levofloxacin/Dextrose 5%-Water 750 MG in Premix Bag 1 BAG IV SCH (21:16)
[2020-08-22] MEDS: Montelukast 10 MG Tab PO SCH (21:17)
[2020-08-22] MEDS: REMDESIVIR (EUA) 100 MG in Sodium Chloride 0.9% 100 ML IV SCH (22:57)
[2020-08-23] MEDS: Albuterol/Ipratropium 3.0-0.5 MG/3 ML Neb Soln NEB SCH ×6 (02:30→22:00)
[2020-08-23 07:24] LABS: CARBON DIOXIDE,CO2 24.5 mmol/L (21.0-32.0); POTASSIUM,K 4.1 mmol/L (3.5-5.1)
[2020-08-23] MEDS: Naproxen 500 MG Tab PO SCH ×2 (08:24→20:11)
[2020-08-23] MEDS: Dexamethasone 4 MG Tab PO SCH (08:24)
[2020-08-23] MEDS: Pantoprazole 40 MG Tab.CR PO SCH (08:24)
[2020-08-23] MEDS: Allopurinol 100 MG Tab PO SCH (08:26)
[2020-08-23] MEDS: Hydrochlorothiazide 25 MG Tab PO SCH (08:27)
[2020-08-23] MEDS: Losartan 50 MG Tab PO SCH (08:27)
[2020-08-23] MEDS: Insulin Aspart 100 Units/ML 3 ML Pen SUBCUT SCH ×4 (09:00→18:23)
[2020-08-23] MEDS: Benzonatate 100 MG Cap PO PRN ×2 (13:38→22:03)
--- NOTE | 2020-08-23 14:38 | PCM.PN ---
<Ani Marie - Last Filed: 08/23/20 14:33> - General Info Date of Service: 08/23/20 Subjective Update: Is admitted for Acute Hypoxic Respiratory Failure 2/2 COVID 19. Is doing better today, we have been continuing to wean his O2. But anytime he used the bathroom he desaturates and has to be put back on a higher level. Thus, requiring Bipap overnight. This morning we put back on 3L, was sat at 92%. When pt went to use the bathroom again he desaturated again requiring 8L. Otherwise, patient has been stable, with no overnight events. States he slept well. Was curious about why his blood sugars have been elevated. Pt was confused whether he uses his metformin at home. Confirmed that amongst the medications he brought in from home, he does take metformin. Also explained that steroids will also increase his sugars. Pt also had a unit if the convalescent plasma the day prior, and understands he is due for the following dose today. Pt was seen at bedside, resting in bed, all questions and concerns had been addressed. - Review of Systems General: Reports: No Symptoms HEENT: Reports: No Symptoms Pulmonary: Reports: Shortness of Breath, Cough. Denies: Pleuritic Chest Pain Cardiovascular: Reports: No Symptoms Gastrointestinal: Reports: No Symptoms Genitourinary: Reports: No Symptoms Musculoskeletal: Reports: No Symptoms Skin: Reports: No Symptoms Neurological: Reports: No Symptoms Psychiatric: Reports: No Symptoms - Patient Data Vitals - Most Recent: Last Vital Signs Temp 97.7 F 08/23/20 14:09 Pulse 100 08/21/20 20:00 Resp 16 08/23/20 14:09 BP 126/73 08/23/20 14:09 Pulse Ox 94 L 08/23/20 11:52 Weight - Most Recent: 90.718 kg I&O - Last 24 Hours: Intake & Output 08/22/20 08/23/20 08/23/20 22:59 06:59 14:59 Intake Total 610 420 14 Output Total 700 1200 Balance -90 -780 14 Lab Results Last 24 Hours: Laboratory Results - last 24 hr 08/22/20 08/22/20 08/23/20 Range/Units 07:40 16:50 06:07 WBC 6.69 (4.0-11.0) K/uL RBC 3.92 L (4.50-5.90) M/uL Hgb 11.8 L (13.0-17.0) g/dL Hct 35.3 L (38.0-50.0) % MCV 90.1 (80.0-98.0) fL MCH 30.1 (27.0-32.0) pg MCHC 33.4 (31.0-37.0) g/dL RDW Std Deviation 40.5 (28.0-62.0) fl RDW Coeff of Burton 12 (11.0-15.0) % Plt Count 266 (150-400) K/uL MPV 10.30 (7.40-12.00) fL Neut % (Auto) 83.3 H (48.0-80.0) % Lymph % (Auto) 10.8 L (16.0-40.0) % [place] % (Auto) 5.8 (0.0-15.0) % Eos % (Auto) 0.0 (0.0-7.0) % Baso % (Auto) 0.1 (0.0-1.5) % Neut # (Auto) 5.6 (1.4-5.7) K/uL Lymph # (Auto) 0.7 (0.6-2.4) K/uL [place] # (Auto) 0.4 (0.0-0.8) K/uL Eos # (Auto) 0.0 (0.0-0.7) K/uL Baso # (Auto) 0.0 (0.0-0.1) K/uL Nucleated RBC % 0.0 /100WBC Nucleated RBCs # 0 K/uL Sodium (136-148) mmol/L Potassium (3.5-5.1) mmol/L Chloride (98-107) mmol/L Carbon Dioxide (21.0-32.0) mmol/L BUN (7.0-18.0) mg/dL Creatinine (0.8-1.3) mg/dL Est Cr Clr Drug Dosing mL/min Estimated GFR (MDRD) ml/min Glucose (74-106) mg/dL POC Glucose 296 H (60-110) mg/dL Calcium (8.5-10.1) mg/dL Phosphorus (2.6-4.7) mg/dL Magnesium (1.8-2.4) mg/dL Total Bilirubin (0.2-1.0) mg/dL AST (15-37) IU/L ALT (14-63) IU/L Alkaline Phosphatase (46-116) U/L Total Protein (6.4-8.2) g/dL Albumin (3.4-5.0) g/dL Globulin (2.6-4.0) g/dL Albumin/Globulin Ratio (0.9-1.6) Blood Type O POSITIVE Antibody Screen NEGATIVE 08/23/20 08/23/20 08/23/20 Range/Units 06:07 07:08 12:48 WBC (4.0-11.0) K/uL RBC (4.50-5.90) M/uL Hgb (13.0-17.0) g/dL Hct (38.0-50.0) % MCV (80.0-98.0) fL MCH (27.0-32.0) pg MCHC (31.0-37.0) g/dL RDW Std Deviation (28.0-62.0) fl RDW Coeff of Burton (11.0-15.0) % Plt Count (150-400) K/uL MPV (7.40-12.00) fL Neut % (Auto) (48.0-80.0) % Lymph % (Auto) (16.0-40.0) % [place] % (Auto) (0.0-15.0) % Eos % (Auto) (0.0-7.0) % Baso % (Auto) (0.0-1.5) % Neut # (Auto) (1.4-5.7) K/uL Lymph # (Auto) (0.6-2.4) K/uL [place] # (Auto) (0.0-0.8) K/uL Eos # (Auto) (0.0-0.7) K/uL Baso # (Auto) (0.0-0.1) K/uL Nucleated RBC % /100WBC Nucleated RBCs # K/uL Sodium 136 (136-148) mmol/L Potassium 4.1 (3.5-5.1) mmol/L Chloride 99 (98-107) mmol/L Carbon Dioxide 24.5 (21.0-32.0) mmol/L BUN 33 H (7.0-18.0) mg/dL Creatinine 1.4 H (0.8-1.3) mg/dL Est Cr Clr Drug Dosing 53.61 mL/min Estimated GFR (MDRD) 51.5 ml/min Glucose 279 H (74-106) mg/dL POC Glucose 255 H 288 H (60-110) mg/dL Calcium 8.7 (8.5-10.1) mg/dL Phosphorus 3.7 (2.6-4.7) mg/dL Magnesium 2.2 (1.8-2.4) mg/dL Total Bilirubin 0.4 (0.2-1.0) mg/dL AST 75 H (15-37) IU/L ALT 113 H (14-63) IU/L Alkaline Phosphatase 45 L (46-116) U/L Total Protein 7.4 (6.4-8.2) g/dL Albumin 2.9 L (3.4-5.0) g/dL Globulin 4.5 H (2.6-4.0) g/dL Albumin/Globulin Ratio 0.6 L (0.9-1.6) Blood Type Antibody Screen Carlos Results Last 24 Hours: Microbiology 08/21/20 21:43 Aerobic Blood Culture - Preliminary Blood - Venous - Lab Draw NO GROWTH AFTER 1 DAY Anaerobic Blood Culture - Preliminary NO GROWTH AFTER 1 DAY 08/21/20 21:37 Aerobic Blood Culture - Preliminary Blood - Venous NO GROWTH AFTER 1 DAY Anaerobic Blood Culture - Preliminary NO GROWTH AFTER 1 DAY Med Orders - Current: Current Medications Albuterol/Ipratropium (Duoneb 3.0-0.5 Mg/3 Ml) 3 ml NEB Q4HRRT [facility] Last Admin: 08/23/20 14:18 Dose: 3 ml Documented by: Allopurinol (Zyloprim) 100 mg PO DAILY [facility] Last Admin: 08/23/20 08:26 Dose: 100 mg Documented by: Benzonatate (Tessalon Perles) 100 mg PO TID PRN PRN Reason: Cough Last Admin: 08/23/20 13:38 Dose: 100 mg Documented by: Dexamethasone (Dexamethasone) 6 mg PO DAILY [facility] Last Admin: 08/23/20 08:24 Dose: 6 mg Documented by: Dextrose/Water (Dextrose 50% In Water) 50 ml IV ASDIRECTED PRN PRN Reason: Hypoglycemia Enoxaparin Sodium (Lovenox) 40 mg SUBCUT Q24H [facility] Last Admin: 08/22/20 19:11 Dose: 40 mg Documented by: Glucagon (Glucagen) 1 mg IM ASDIRECTED PRN PRN Reason: Hypoglycemia Hydrochlorothiazide (Hydrochlorothiazide) 25 mg PO DAILY [facility] Last Admin: 08/23/20 08:27 Dose: 25 mg Documented by: Levofloxacin/Dextrose 750 mg/ (Premix) 150 mls @ 100 mls/hr IV Q24H [facility] Last Admin: 08/22/20 21:16 Dose: 100 mls/hr Documented by: Remdesivir 100 mg/ Sodium (Chloride) 100 mls @ 100 mls/hr IV Q24H [facility] Stop: 08/25/20 23:59 Last Admin: 08/22/20 22:57 Dose: 100 mls/hr Documented by: Insulin Aspart (Novolog) 0 unit SUBCUT TIDAC [facility]; Protocol Last Admin: 08/23/20 13:39 Dose: 6 units Documented by: Losartan Potassium (Cozaar) 100 mg PO DAILY [facility] Last Admin: 08/23/20 08:27 Dose: 100 mg Documented by: Montelukast Sodium (Singulair) 10 mg PO BEDTIME [facility] Last Admin: 08/22/20 21:17 Dose: 10 mg Documented by: Naproxen (Naprosyn) 500 mg PO BID [facility] Last Admin: 08/23/20 08:24 Dose: 500 mg Documented by: Ondansetron HCl (Zofran Odt) 4 mg PO Q4H PRN PRN Reason: nausea, able to take PO Pantoprazole Sodium (Protonix) 40 mg PO DAILY [facility] Last Admin: 08/23/20 08:24 Dose: 40 mg Documented by: Sodium Chloride (Saline Flush) 10 ml FLUSH ASDIRECTED PRN PRN Reason: Keep Vein Open Last Admin: 08/21/20 15:48 Dose: 10 ml Documented by: Sodium Chloride (Saline Flush) 2.5 ml FLUSH ASDIRECTED PRN PRN Reason: Keep Vein Open Last Admin: 08/21/20 15:48 Dose: 2.5 ml Documented by: Discontinued Medications Dexamethasone (Dexamethasone) 6 mg IVPUSH ONETIME ONE Stop: 08/21/20 15:17 Last Admin: 08/21/20 15:47 Dose: 6 mg Documented by: Fentanyl (Sublimaze) Confirm Administered Dose 100 mcg .ROUTE .STK-MED ONE Stop: 08/22/20 10:45 Last Admin: 08/22/20 13:54 Dose: Not Given Documented by: Hydrochlorothiazide (Hydrochlorothiazide) 12.5 mg PO BID [facility] Last Admin: 08/21/20 21:46 Dose: 12.5 mg Documented by: Remdesivir 200 mg/ Sodium (Chloride) 250 mls @ 250 mls/hr IV ONETIME ONE Stop: 08/21/20 23:59 Last Admin: 08/21/20 23:35 Dose: 250 mls/hr Documented by: Lactated Ringer's (Ringers, Lactated) 250 mls @ 999 mls/hr IV .BOLUS ONE Stop: 08/22/20 10:24 Last Admin: 08/22/20 10:37 Dose: 999 mls/hr Documented by: Propofol (Diprivan 100 Ml) Confirm Administered Dose 100 mls @ as directed .ROUTE .K-MED ONE Stop: 08/22/20 10:45 Last Admin: 08/22/20 13:54 Dose: Not Given Documented by: Insulin Aspart (Novolog) 0 unit SUBCUT TIDAC [facility]; Protocol Last Admin: 08/23/20 14:17 Dose: Not Given Documented by: Losartan Potassium (Cozaar) 50 mg PO BID [facility] Last Admin: 08/21/20 21:46 Dose: 50 mg Documented by: Midazolam HCl (Versed 1 Mg/Ml) Confirm Administered Dose 2 mg .ROUTE .STK-MED ONE Stop: 08/22/20 10:45 Last Admin: 08/22/20 13:56 Dose: Not Given Documented by: Naproxen (Naprosyn) 550 mg PO BID [facility] Naproxen (Naproxen Sodium) 550 mg PO BID [facility] Last Admin: 08/21/20 23:33 Dose: 550 mg Documented by: Naproxen (Naprosyn) 550 mg PO BID [facility] Last Admin: 08/22/20 10:38 Dose: Not Given Documented by: Non-Formulary Medication (Hydrochlorothiazide [Hydrochlorothiazide]) 12.5 mg PO BID [facility] Non-Formulary Medication (Naproxen Sodium [Anaprox Ds]) 550 mg PO BID [facility] Penicillin V Potassium (Veetids) 250 mg PO Q6HR [facility] Last Admin: 08/22/20 06:09 Dose: 250 mg Documented by: Potassium Chloride (Potassium Chloride) 40 meq PO ONETIME ONE Stop: 08/21/20 21:10 Last Admin: 08/21/20 21:45 Dose: 40 meq Documented by: - Exam Quality Assessment: Supplemental Oxygen General: Alert, Oriented, Cooperative, No Acute Distress HEENT: Pupils Equal, Pupils Reactive, EOMI, Mucous Membr. Moist/[place] Neck: Supple, Trachea Midline, No JVD Lungs: Clear to Auscultation, Normal Respiratory Effort Cardiovascular: Regular Rate, Regular Rhythm GI/Abdominal Exam: Normal Bowel Sounds, Soft, Non-Tender Extremities: Normal Inspection, Normal Range of Motion, No Pedal Edema, Normal Capillary Refill Peripheral Pulses: 2+: Dorsalis Pedis (L), Dorsalis Pedis (R) Skin: Warm, Dry, Intact Neurological: No New Focal Deficit Psy/Mental Status: Alert, Normal Affect, Normal Mood Sepsis Event Note - Evaluation Sepsis Screening Result: No Definite Risk - Focused Exam Vital Signs: Vital Signs Temp Resp BP BP Pulse Ox 08/23/20 14:09 97.7 F 16 126/73 08/23/20 13:54 97.5 F 22 H 133/77 08/23/20 11:52 23 H 119/77 94 L 08/23/20 11:22 25 H 131/80 92 L 08/23/20 10:39 22 H 94 L 08/23/20 10:00 20 128/70 96 08/23/20 09:10 22 H 92 L 08/23/20 08:52 121/71 85 L 08/23/20 08:27 139/87 08/23/20 07:52 23 H 132/86 92 L 08/23/20 06:52 21 H 125/85 92 L 08/23/20 06:00 19 121/79 92 L 08/23/20 05:30 94 L 08/23/20 05:10 96 08/23/20 05:00 19 127/80 95 08/23/20 04:00 21 H 123/81 95 08/23/20 03:00 21 H 130/79 94 L - Problem List & Annotations (1) Acute hypoxemic respiratory failure due to COVID-19 SNOMED Code(s): 897671252 Code(s): U07.1 - COVID-19; J96.01 - ACUTE RESPIRATORY FAILURE WITH HYPOXIA Status: Acute Current Visit: Yes (2) Acute hypoxemic respiratory failure due to COVID-19 SNOMED Code(s): 206844571 Code(s): U07.1 - COVID-19; J96.01 - ACUTE RESPIRATORY FAILURE WITH HYPOXIA Status: Acute Current Visit: Yes (3) Transaminitis SNOMED Code(s): 043371938, 453959013 Code(s): R74.01 - ELEVATION OF LEVELS OF LIVER TRANSAMINASE LEVELS Status: Acute Current Visit: Yes (4) Hypokalemia SNOMED Code(s): 61664850 Code(s): E87.6 - HYPOKALEMIA Status: Acute Current Visit: Yes (5) Hyponatremia SNOMED Code(s): 86743883 Code(s): E87.1 - HYPO-OSMOLALITY AND HYPONATREMIA Status: Acute Current Visit: Yes - Problem List Review Problem List Initiated/Reviewed/Updated: Yes - My Orders Last 24 Hours: My Active Orders 08/22/20 23:00 Remdesivir (Eua) [Remdesivir (EUA)] 100 mg Sodium Chloride 0.9% [Normal Sali ne] 100 ml IV Q24H 08/23/20 11:41 Transfuse Fresh Frozen Plasma [COMM] Routine 08/23/20 11:43 Benzonatate [Tessalon Perles] 100 mg PO TID PRN 08/23/20 13:10 Insulin Aspart [NovoLOG] See Protocol SUBCUT TIDAC 08/24/20 05:11 CBC WITH AUTO DIFF [HEME] AM COMPREHENSIVE METABOLIC PN,CMP [CHEM] AM MAGNESIUM [CHEM] AM PHOSPHORUS [CHEM] AM - Plan Plan:: 60 y/o dhara is being treated for AHRF 2/2 COVID 19. 1. COVID- continue with remdesivir, due to second unit of covalescent plasma today, daily 6 mg dexamethasone, Q4 combivent. Levaquin. Wean O2 as tolerated. 2. Hyperglycemia- 255 on sliding scale, current regimen is on low dose sliding scale. Will re-adjust to medium dose sliding scale to ensure better glucose control. Pt was unaware he was taking metformin at home, also likely secondary to steroid use. 3. Mild transaminitis: elevated AST, improved ALt, currnetly not 5X upper limit of normal which can be a side affect of remdesivir. Will continue to monitor closely with daily a.m cmp. 4. MARILUZ- BUN 33, Cr 1.4-avoid nephrotoxic agents. No fluids to avoid fluid overload as pt will be receiving convalescent plasma later. 5. Cough- avoid having fluid overload, [place]on lois I have seen and evaluated the patient and agree with the residents note unless specified in my note <Chencho Aponte - Last Filed: 08/24/20 23:05> - Patient Data Vitals - Most Recent: Last Vital Signs Temp 36.8 C 08/24/20 20:00 Pulse 94 08/24/20 20:00 Resp 20 08/24/20 20:00 BP 123/73 08/24/20 20:00 Pulse Ox 92 L 08/24/20 20:00 I&O - Last 24 Hours: Intake & Output 08/24/20 08/24/20 08/25/20 14:59 22:59 06:59 Intake Total 850 Output Total 1000 Balance -150 Lab Results Last 24 Hours: Laboratory Results - last 24 hr 08/24/20 08/24/20 08/24/20 Range/Units 05:10 05:10 08:20 WBC 6.70 (4.0-11.0) K/uL RBC 3.84 L (4.50-5.90) M/uL Hgb 11.5 L (13.0-17.0) g/dL Hct 34.6 L (38.0-50.0) % MCV 90.1 (80.0-98.0) fL MCH 29.9 (27.0-32.0) pg MCHC 33.2 (31.0-37.0) g/dL RDW Std Deviation 40.9 (28.0-62.0) fl RDW Coeff of Burton 12 (11.0-15.0) % Plt Count 306 (150-400) K/uL MPV 9.90 (7.40-12.00) fL Neut % (Auto) 73.8 (48.0-80.0) % Lymph % (Auto) 19.7 (16.0-40.0) % [place] % (Auto) 6.4 (0.0-15.0) % Eos % (Auto) 0.0 (0.0-7.0) % Baso % (Auto) 0.1 (0.0-1.5) % Neut # (Auto) 4.9 (1.4-5.7) K/uL Lymph # (Auto) 1.3 (0.6-2.4) K/uL [place] # (Auto) 0.4 (0.0-0.8) K/uL Eos # (Auto) 0.0 (0.0-0.7) K/uL Baso # (Auto) 0.0 (0.0-0.1) K/uL Nucleated RBC % 0.0 /100WBC Nucleated RBCs # 0 K/uL Sodium 137 (136-148) mmol/L Potassium 3.7 (3.5-5.1) mmol/L Chloride 100 (98-107) mmol/L Carbon Dioxide 26.0 (21.0-32.0) mmol/L BUN 37 H (7.0-18.0) mg/dL Creatinine 1.3 (0.8-1.3) mg/dL Est Cr Clr Drug Dosing 57.73 mL/min Estimated GFR (MDRD) 56.1 ml/min Glucose 190 H (74-106) mg/dL POC Glucose 164 H (60-110) mg/dL Calcium 8.8 (8.5-10.1) mg/dL Phosphorus 3.7 (2.6-4.7) mg/dL Magnesium 1.9 (1.8-2.4) mg/dL Total Bilirubin 0.4 (0.2-1.0) mg/dL AST 41 H (15-37) IU/L ALT 91 H (14-63) IU/L Alkaline Phosphatase 40 L (46-116) U/L Total Protein 7.0 (6.4-8.2) g/dL Albumin 2.8 L (3.4-5.0) g/dL Globulin 4.2 H (2.6-4.0) g/dL Albumin/Globulin Ratio 0.7 L (0.9-1.6) 08/24/20 08/24/20 Range/Units 11:50 17:07 WBC (4.0-11.0) K/uL RBC (4.50-5.90) M/uL Hgb (13.0-17.0) g/dL Hct (38.0-50.0) % MCV (80.0-98.0) fL MCH (27.0-32.0) pg MCHC (31.0-37.0) g/dL RDW Std Deviation (28.0-62.0) fl RDW Coeff of Burton (11.0-15.0) % Plt Count (150-400) K/uL MPV (7.40-12.00) fL Neut % (Auto) (48.0-80.0) % Lymph % (Auto) (16.0-40.0) % [place] % (Auto) (0.0-15.0) % Eos % (Auto) (0.0-7.0) % Baso % (Auto) (0.0-1.5) % Neut # (Auto) (1.4-5.7) K/uL Lymph # (Auto) (0.6-2.4) K/uL [place] # (Auto) (0.0-0.8) K/uL Eos # (Auto) (0.0-0.7) K/uL Baso # (Auto) (0.0-0.1) K/uL Nucleated RBC % /100WBC Nucleated RBCs # K/uL Sodium (136-148) mmol/L Potassium (3.5-5.1) mmol/L Chloride (98-107) mmol/L Carbon Dioxide (21.0-32.0) mmol/L BUN (7.0-18.0) mg/dL Creatinine (0.8-1.3) mg/dL Est Cr Clr Drug Dosing mL/min Estimated GFR (MDRD) ml/min Glucose (74-106) mg/dL POC Glucose 299 H 348 H (60-110) mg/dL Calcium (8.5-10.1) mg/dL Phosphorus (2.6-4.7) mg/dL Magnesium (1.8-2.4) mg/dL Total Bilirubin (0.2-1.0) mg/dL AST (15-37) IU/L ALT (14-63) IU/L Alkaline Phosphatase (46-116) U/L Total Protein (6.4-8.2) g/dL Albumin (3.4-5.0) g/dL Globulin (2.6-4.0) g/dL Albumin/Globulin Ratio (0.9-1.6) Carlos Results Last 24 Hours: Microbiology 08/21/20 21:43 Aerobic Blood Culture - Preliminary Blood - Venous - Lab Draw NO GROWTH AFTER 3 DAYS Anaerobic Blood Culture - Preliminary NO GROWTH AFTER 3 DAYS 08/21/20 21:37 Aerobic Blood Culture - Preliminary Blood - Venous NO GROWTH AFTER 3 DAYS Anaerobic Blood Culture - Preliminary NO GROWTH AFTER 3 DAYS Med Orders - Current: Current Medications Albuterol/Ipratropium (Duoneb 3.0-0.5 Mg/3 Ml) 3 ml NEB Q4HRRT [facility] Last Admin: 08/24/20 21:39 Dose: 3 ml Documented by: Allopurinol (Zyloprim) 100 mg PO DAILY [facility] Last Admin: 08/24/20 08:24 Dose: 100 mg Documented by: Benzonatate (Tessalon Perles) 100 mg PO TID PRN PRN Reason: Cough Last Admin: 08/24/20 21:38 Dose: 100 mg Documented by: Dexamethasone (Dexamethasone) 6 mg PO DAILY [facility] Last Admin: 08/24/20 08:25 Dose: 6 mg Documented by: Dextrose/Water (Dextrose 50% In Water) 50 ml IV ASDIRECTED PRN PRN Reason: Hypoglycemia Enoxaparin Sodium (Lovenox) 40 mg SUBCUT Q24H [facility] Last Admin: 08/24/20 18:13 Dose: 40 mg Documented by: Glucagon (Glucagen) 1 mg IM ASDIRECTED PRN PRN Reason: Hypoglycemia Guaifenesin (Mucus Relief) 400 mg PO Q4H PRN PRN Reason: Cough Last Admin: 08/24/20 20:26 Dose: 400 mg Documented by: Hydrochlorothiazide (Hydrochlorothiazide) 25 mg PO DAILY [facility] Last Admin: 08/24/20 08:24 Dose: 25 mg Documented by: Levofloxacin/Dextrose 750 mg/ (Premix) 150 mls @ 100 mls/hr IV Q24H [facility] Last Admin: 08/24/20 20:28 Dose: 100 mls/hr Documented by: Remdesivir 100 mg/ Sodium (Chloride) 100 mls @ 100 mls/hr IV Q24H [facility] Stop: 08/25/20 23:59 Last Admin: 08/24/20 22:19 Dose: 100 mls/hr Documented by: Insulin Aspart (Novolog) 0 unit SUBCUT TIDAC [facility]; Protocol Last Admin: 08/24/20 17:08 Dose: 8 units Documented by: Losartan Potassium (Cozaar) 100 mg PO DAILY [facility] Last Admin: 08/24/20 08:24 Dose: 100 mg Documented by: Montelukast Sodium (Singulair) 10 mg PO BEDTIME [facility] Last Admin: 08/24/20 20:26 Dose: 10 mg Documented by: Naproxen (Naprosyn) 500 mg PO BID [facility] Last Admin: 08/24/20 20:26 Dose: 500 mg Documented by: Ondansetron HCl (Zofran Odt) 4 mg PO Q4H PRN PRN Reason: nausea, able to take PO Pantoprazole Sodium (Protonix) 40 mg PO DAILY [facility] Last Admin: 08/24/20 08:24 Dose: 40 mg Documented by: Sodium Chloride (Saline Flush) 10 ml FLUSH ASDIRECTED PRN PRN Reason: Keep Vein Open Last Admin: 08/21/20 15:48 Dose: 10 ml Documented by: Sodium Chloride (Saline Flush) 2.5 ml FLUSH ASDIRECTED PRN PRN Reason: Keep Vein Open Last Admin: 08/21/20 15:48 Dose: 2.5 ml Documented by: Discontinued Medications Dexamethasone (Dexamethasone) 6 mg IVPUSH ONETIME ONE Stop: 08/21/20 15:17 Last Admin: 08/21/20 15:47 Dose: 6 mg Documented by: Fentanyl (Sublimaze) Confirm Administered Dose 100 mcg .ROUTE .STK-MED ONE Stop: 08/22/20 10:45 Last Admin: 08/22/20 13:54 Dose: Not Given Documented by: Furosemide (Lasix) 20 mg IVPUSH NOW ONE Stop: 08/24/20 09:37 Last Admin: 08/24/20 09:52 Dose: 20 mg Documented by: Hydrochlorothiazide (Hydrochlorothiazide) 12.5 mg PO BID [facility] Last Admin: 08/21/20 21:46 Dose: 12.5 mg Documented by: Remdesivir 200 mg/ Sodium (Chloride) 250 mls @ 250 mls/hr IV ONETIME ONE Stop: 08/21/20 23:59 Last Admin: 08/21/20 23:35 Dose: 250 mls/hr Documented by: Lactated Ringer's (Ringers, Lactated) 250 mls @ 999 mls/hr IV .BOLUS ONE Stop: 08/22/20 10:24 Last Admin: 08/22/20 10:37 Dose: 999 mls/hr Documented by: Propofol (Diprivan 100 Ml) Confirm Administered Dose 100 mls @ as directed .ROUTE .K-MED ONE Stop: 08/22/20 10:45 Last Admin: 08/22/20 13:54 Dose: Not Given Documented by: Insulin Aspart (Novolog) 0 unit SUBCUT TIDAC [facility]; Protocol Last Admin: 08/23/20 14:17 Dose: Not Given Documented by: Losartan Potassium (Cozaar) 50 mg PO BID [facility] Last Admin: 08/21/20 21:46 Dose: 50 mg Documented by: Midazolam HCl (Versed 1 Mg/Ml) Confirm Administered Dose 2 mg .ROUTE .K-MED ONE Stop: 08/22/20 10:45 Last Admin: 08/22/20 13:56 Dose: Not Given Documented by: Naproxen (Naprosyn) 550 mg PO BID [facility] Naproxen (Naproxen Sodium) 550 mg PO BID [facility] Last Admin: 08/21/20 23:33 Dose: 550 mg Documented by: Naproxen (Naprosyn) 550 mg PO BID [facility] Last Admin: 08/22/20 10:38 Dose: Not Given Documented by: Non-Formulary Medication (Hydrochlorothiazide [Hydrochlorothiazide]) 12.5 mg PO BID [facility] Non-Formulary Medication (Naproxen Sodium [Anaprox Ds]) 550 mg PO BID [facility] Penicillin V Potassium (Veetids) 250 mg PO Q6HR [facility] Last Admin: 08/22/20 06:09 Dose: 250 mg Documented by: Potassium Chloride (Potassium Chloride) 40 meq PO ONETIME ONE Stop: 08/21/20 21:10 Last Admin: 08/21/20 21:45 Dose: 40 meq Documented by: Sepsis Event Note - Focused Exam Vital Signs: Vital Signs Temp Pulse Resp BP Pulse Ox 08/24/20 20:00 36.8 C 94 20 123/73 92 L 08/24/20 16:34 36.6 C 20 125/73 90 L 08/24/20 11:55 36.1 C 20 118/71 92 L - Plan Plan:: I have seen and evaluated the patient and agree with the residents note unless specified in my note
[2020-08-23] MEDS: Enoxaparin 40 MG/0.4 ML Syringe SUBCUT SCH (18:25)
[2020-08-23] MEDS: Montelukast 10 MG Tab PO SCH (20:11)
[2020-08-23] MEDS: Levofloxacin/Dextrose 5%-Water 750 MG in Premix Bag 1 BAG IV SCH (20:14)
[2020-08-23] MEDS: REMDESIVIR (EUA) 100 MG in Sodium Chloride 0.9% 100 ML IV SCH (22:00)
[2020-08-24] MEDS: Albuterol/Ipratropium 3.0-0.5 MG/3 ML Neb Soln NEB SCH ×6 (01:00→21:39)
[2020-08-24 05:52] LABS: POTASSIUM,K 3.7 mmol/L (3.5-5.1)
[2020-08-24] MEDS: Benzonatate 100 MG Cap PO PRN ×3 (05:57→21:38)
[2020-08-24] MEDS: Naproxen 500 MG Tab PO SCH ×2 (08:23→20:26)
[2020-08-24] MEDS: Losartan 50 MG Tab PO SCH (08:24)
[2020-08-24] MEDS: Hydrochlorothiazide 25 MG Tab PO SCH (08:24)
[2020-08-24] MEDS: Pantoprazole 40 MG Tab.CR PO SCH (08:24)
[2020-08-24] MEDS: Allopurinol 100 MG Tab PO SCH (08:24)
[2020-08-24] MEDS: Insulin Aspart 100 Units/ML 3 ML Pen SUBCUT SCH ×3 (08:25→17:08)
[2020-08-24] MEDS: Dexamethasone 4 MG Tab PO SCH (08:25)
[2020-08-24] MEDS ORDERED: Furosemide 40 MG/4 ML VIAL IVPUSH ONE (09:36)
--- NOTE | 2020-08-24 12:54 | PCM.PN ---
- General Info Date of Service: 08/24/20 Subjective Update: Pt seen and examined at bedside states he is doing well, slept comfortably on BIPAP overnight. This morning on 3 L O2, denies s.o.b at rest, only with activity, states is feeling better except for a persistent cough. - Review of Systems General: Reports: No Symptoms HEENT: Reports: No Symptoms Pulmonary: Reports: Cough Cardiovascular: Reports: No Symptoms Gastrointestinal: Reports: No Symptoms Genitourinary: Reports: No Symptoms Musculoskeletal: Reports: No Symptoms Skin: Reports: No Symptoms Neurological: Reports: No Symptoms Psychiatric: Reports: No Symptoms - Patient Data Vitals - Most Recent: Last Vital Signs Temp 96.9 F 08/24/20 11:55 Pulse 100 08/21/20 20:00 Resp 20 08/24/20 11:55 BP 118/71 08/24/20 11:55 Pulse Ox 92 L 08/24/20 11:55 Weight - Most Recent: 200 lb I&O - Last 24 Hours: Intake & Output 08/23/20 08/24/20 08/24/20 22:59 06:59 14:59 Intake Total 1028 1300 Output Total 700 Balance 328 1300 Lab Results Last 24 Hours: Laboratory Results - last 24 hr 08/22/20 08/23/20 08/23/20 Range/Units 07:40 12:48 17:29 WBC (4.0-11.0) K/uL RBC (4.50-5.90) M/uL Hgb (13.0-17.0) g/dL Hct (38.0-50.0) % MCV (80.0-98.0) fL MCH (27.0-32.0) pg MCHC (31.0-37.0) g/dL RDW Std Deviation (28.0-62.0) fl RDW Coeff of [place] (11.0-15.0) % Plt Count (150-400) K/uL MPV (7.40-12.00) fL Neut % (Auto) (48.0-80.0) % Lymph % (Auto) (16.0-40.0) % [place] % (Auto) (0.0-15.0) % Eos % (Auto) (0.0-7.0) % Baso % (Auto) (0.0-1.5) % Neut # (Auto) (1.4-5.7) K/uL Lymph # (Auto) (0.6-2.4) K/uL [place] # (Auto) (0.0-0.8) K/uL Eos # (Auto) (0.0-0.7) K/uL Baso # (Auto) (0.0-0.1) K/uL Nucleated RBC % /100WBC Nucleated RBCs # K/uL Sodium (136-148) mmol/L Potassium (3.5-5.1) mmol/L Chloride (98-107) mmol/L Carbon Dioxide (21.0-32.0) mmol/L BUN (7.0-18.0) mg/dL Creatinine (0.8-1.3) mg/dL Est Cr Clr Drug Dosing mL/min Estimated GFR (MDRD) ml/min Glucose (74-106) mg/dL POC Glucose 288 H 342 H (60-110) mg/dL Calcium (8.5-10.1) mg/dL Phosphorus (2.6-4.7) mg/dL Magnesium (1.8-2.4) mg/dL Total Bilirubin (0.2-1.0) mg/dL AST (15-37) IU/L ALT (14-63) IU/L Alkaline Phosphatase (46-116) U/L Total Protein (6.4-8.2) g/dL Albumin (3.4-5.0) g/dL Globulin (2.6-4.0) g/dL Albumin/Globulin Ratio (0.9-1.6) Blood Type O POSITIVE Antibody Screen NEGATIVE 08/24/20 08/24/20 08/24/20 Range/Units 05:10 05:10 08:20 WBC 6.70 (4.0-11.0) K/uL RBC 3.84 L (4.50-5.90) M/uL Hgb 11.5 L (13.0-17.0) g/dL Hct 34.6 L (38.0-50.0) % MCV 90.1 (80.0-98.0) fL MCH 29.9 (27.0-32.0) pg MCHC 33.2 (31.0-37.0) g/dL RDW Std Deviation 40.9 (28.0-62.0) fl RDW Coeff of [place] 12 (11.0-15.0) % Plt Count 306 (150-400) K/uL MPV 9.90 (7.40-12.00) fL Neut % (Auto) 73.8 (48.0-80.0) % Lymph % (Auto) 19.7 (16.0-40.0) % [place] % (Auto) 6.4 (0.0-15.0) % Eos % (Auto) 0.0 (0.0-7.0) % Baso % (Auto) 0.1 (0.0-1.5) % Neut # (Auto) 4.9 (1.4-5.7) K/uL Lymph # (Auto) 1.3 (0.6-2.4) K/uL [place] # (Auto) 0.4 (0.0-0.8) K/uL Eos # (Auto) 0.0 (0.0-0.7) K/uL Baso # (Auto) 0.0 (0.0-0.1) K/uL Nucleated RBC % 0.0 /100WBC Nucleated RBCs # 0 K/uL Sodium 137 (136-148) mmol/L Potassium 3.7 (3.5-5.1) mmol/L Chloride 100 (98-107) mmol/L Carbon Dioxide 26.0 (21.0-32.0) mmol/L BUN 37 H (7.0-18.0) mg/dL Creatinine 1.3 (0.8-1.3) mg/dL Est Cr Clr Drug Dosing 57.73 mL/min Estimated GFR (MDRD) 56.1 ml/min Glucose 190 H (74-106) mg/dL POC Glucose 164 H (60-110) mg/dL Calcium 8.8 (8.5-10.1) mg/dL Phosphorus 3.7 (2.6-4.7) mg/dL Magnesium 1.9 (1.8-2.4) mg/dL Total Bilirubin 0.4 (0.2-1.0) mg/dL AST 41 H (15-37) IU/L ALT 91 H (14-63) IU/L Alkaline Phosphatase 40 L (46-116) U/L Total Protein 7.0 (6.4-8.2) g/dL Albumin 2.8 L (3.4-5.0) g/dL Globulin 4.2 H (2.6-4.0) g/dL Albumin/Globulin Ratio 0.7 L (0.9-1.6) Blood Type Antibody Screen Carlos Results Last 24 Hours: Microbiology 08/21/20 21:43 Aerobic Blood Culture - Preliminary Blood - Venous - Lab Draw NO GROWTH AFTER 2 DAYS Anaerobic Blood Culture - Preliminary NO GROWTH AFTER 2 DAYS 08/21/20 21:37 Aerobic Blood Culture - Preliminary Blood - Venous NO GROWTH AFTER 2 DAYS Anaerobic Blood Culture - Preliminary NO GROWTH AFTER 2 DAYS Med Orders - Current: Current Medications Albuterol/Ipratropium (Duoneb 3.0-0.5 Mg/3 Ml) 3 ml NEB Q4HRRT [facility] Last Admin: 08/24/20 10:13 Dose: 3 ml Documented by: Allopurinol (Zyloprim) 100 mg PO DAILY [facility] Last Admin: 08/24/20 08:24 Dose: 100 mg Documented by: Benzonatate (Tessalon Perles) 100 mg PO TID PRN PRN Reason: Cough Last Admin: 08/24/20 05:57 Dose: 100 mg Documented by: Dexamethasone (Dexamethasone) 6 mg PO DAILY [facility] Last Admin: 08/24/20 08:25 Dose: 6 mg Documented by: Dextrose/Water (Dextrose 50% In Water) 50 ml IV ASDIRECTED PRN PRN Reason: Hypoglycemia Enoxaparin Sodium (Lovenox) 40 mg SUBCUT Q24H [facility] Last Admin: 08/23/20 18:25 Dose: 40 mg Documented by: Glucagon (Glucagen) 1 mg IM ASDIRECTED PRN PRN Reason: Hypoglycemia Guaifenesin (Mucus Relief) 400 mg PO Q4H PRN PRN Reason: Cough Last Admin: 08/24/20 11:58 Dose: 400 mg Documented by: Hydrochlorothiazide (Hydrochlorothiazide) 25 mg PO DAILY [facility] Last Admin: 08/24/20 08:24 Dose: 25 mg Documented by: Levofloxacin/Dextrose 750 mg/ (Premix) 150 mls @ 100 mls/hr IV Q24H [facility] Last Admin: 08/23/20 20:14 Dose: 100 mls/hr Documented by: Remdesivir 100 mg/ Sodium (Chloride) 100 mls @ 100 mls/hr IV Q24H [facility] Stop: 08/25/20 23:59 Last Admin: 08/23/20 22:00 Dose: 100 mls/hr Documented by: Insulin Aspart (Novolog) 0 unit SUBCUT TIDAC [facility]; Protocol Last Admin: 08/24/20 12:01 Dose: 6 units Documented by: Losartan Potassium (Cozaar) 100 mg PO DAILY [facility] Last Admin: 08/24/20 08:24 Dose: 100 mg Documented by: Montelukast Sodium (Singulair) 10 mg PO BEDTIME [facility] Last Admin: 08/23/20 20:11 Dose: 10 mg Documented by: Naproxen (Naprosyn) 500 mg PO BID [facility] Last Admin: 08/24/20 08:23 Dose: 500 mg Documented by: Ondansetron HCl (Zofran Odt) 4 mg PO Q4H PRN PRN Reason: nausea, able to take PO Pantoprazole Sodium (Protonix) 40 mg PO DAILY [facility] Last Admin: 08/24/20 08:24 Dose: 40 mg Documented by: Sodium Chloride (Saline Flush) 10 ml FLUSH ASDIRECTED PRN PRN Reason: Keep Vein Open Last Admin: 08/21/20 15:48 Dose: 10 ml Documented by: Sodium Chloride (Saline Flush) 2.5 ml FLUSH ASDIRECTED PRN PRN Reason: Keep Vein Open Last Admin: 08/21/20 15:48 Dose: 2.5 ml Documented by: Discontinued Medications Dexamethasone (Dexamethasone) 6 mg IVPUSH ONETIME ONE Stop: 08/21/20 15:17 Last Admin: 08/21/20 15:47 Dose: 6 mg Documented by: Fentanyl (Sublimaze) Confirm Administered Dose 100 mcg .ROUTE .STK-MED ONE Stop: 08/22/20 10:45 Last Admin: 08/22/20 13:54 Dose: Not Given Documented by: Furosemide (Lasix) 20 mg IVPUSH NOW ONE Stop: 08/24/20 09:37 Last Admin: 08/24/20 09:52 Dose: 20 mg Documented by: Hydrochlorothiazide (Hydrochlorothiazide) 12.5 mg PO BID [facility] Last Admin: 08/21/20 21:46 Dose: 12.5 mg Documented by: Remdesivir 200 mg/ Sodium (Chloride) 250 mls @ 250 mls/hr IV ONETIME ONE Stop: 08/21/20 23:59 Last Admin: 08/21/20 23:35 Dose: 250 mls/hr Documented by: Lactated Ringer's (Ringers, Lactated) 250 mls @ 999 mls/hr IV .BOLUS ONE Stop: 08/22/20 10:24 Last Admin: 08/22/20 10:37 Dose: 999 mls/hr Documented by: Propofol (Diprivan 100 Ml) Confirm Administered Dose 100 mls @ as directed .ROUTE .STK-MED ONE Stop: 08/22/20 10:45 Last Admin: 08/22/20 13:54 Dose: Not Given Documented by: Insulin Aspart (Novolog) 0 unit SUBCUT TIDAC [facility]; Protocol Last Admin: 08/23/20 14:17 Dose: Not Given Documented by: Losartan Potassium (Cozaar) 50 mg PO BID [facility] Last Admin: 08/21/20 21:46 Dose: 50 mg Documented by: Midazolam HCl (Versed 1 Mg/Ml) Confirm Administered Dose 2 mg .ROUTE .STK-MED ONE Stop: 08/22/20 10:45 Last Admin: 08/22/20 13:56 Dose: Not Given Documented by: Naproxen (Naprosyn) 550 mg PO BID [facility] Naproxen (Naproxen Sodium) 550 mg PO BID [facility] Last Admin: 08/21/20 23:33 Dose: 550 mg Documented by: Naproxen (Naprosyn) 550 mg PO BID [facility] Last Admin: 08/22/20 10:38 Dose: Not Given Documented by: Non-Formulary Medication (Hydrochlorothiazide [Hydrochlorothiazide]) 12.5 mg PO BID [facility] Non-Formulary Medication (Naproxen Sodium [Anaprox Ds]) 550 mg PO BID [facility] Penicillin V Potassium (Veetids) 250 mg PO Q6HR [facility] Last Admin: 08/22/20 06:09 Dose: 250 mg Documented by: Potassium Chloride (Potassium Chloride) 40 meq PO ONETIME ONE Stop: 08/21/20 21:10 Last Admin: 08/21/20 21:45 Dose: 40 meq Documented by: - Exam Quality Assessment: Supplemental Oxygen (3L), DVT Prophylaxis General: Alert, Oriented, Cooperative, No Acute Distress HEENT: Pupils Equal, Pupils Reactive, EOMI, Mucous Membr. Moist/Cantril Neck: Supple, Trachea Midline, No JVD Lungs: Normal Respiratory Effort, Crackles Cardiovascular: Regular Rate, Regular Rhythm, No Murmurs GI/Abdominal Exam: Normal Bowel Sounds, Soft, Non-Tender, No Organomegaly, No Distention, No Abnormal Bruit, No Mass Extremities: Normal Inspection, Normal Range of Motion, Non-Tender, No Pedal Edema, Normal Capillary Refill Peripheral Pulses: 2+: Dorsalis Pedis (L), Dorsalis Pedis (R) Skin: Warm, Dry Neurological: No New Focal Deficit Psy/Mental Status: Alert, Normal Affect, Normal Mood Sepsis Event Note - Evaluation Sepsis Screening Result: No Definite Risk - Focused Exam Vital Signs: Vital Signs Temp Resp BP BP Pulse Ox 08/24/20 11:55 96.9 F 20 118/71 92 L 08/24/20 08:24 125/78 08/24/20 08:00 97.2 F 17 125/78 94 L 08/24/20 07:00 21 H 132/80 93 L 08/24/20 06:00 20 127/71 92 L 08/24/20 05:00 18 121/72 94 L 08/24/20 04:00 98.3 F 17 118/64 91 L 08/24/20 03:00 26 H 129/89 93 L 08/24/20 02:00 17 109/63 95 08/24/20 01:00 18 117/76 95 - Problem List & Annotations (1) Acute hypoxemic respiratory failure due to COVID-19 SNOMED Code(s): 509644452 Code(s): U07.1 - COVID-19; J96.01 - ACUTE RESPIRATORY FAILURE WITH HYPOXIA Status: Acute Current Visit: Yes (2) Acute hypoxemic respiratory failure due to COVID-19 SNOMED Code(s): 413284100 Code(s): U07.1 - COVID-19; J96.01 - ACUTE RESPIRATORY FAILURE WITH HYPOXIA Status: Acute Current Visit: Yes (3) Transaminitis SNOMED Code(s): 642906575, 150842325 Code(s): R74.01 - ELEVATION OF LEVELS OF LIVER TRANSAMINASE LEVELS Status: Acute Current Visit: Yes - Problem List Review Problem List Initiated/Reviewed/Updated: Yes - My Orders Last 24 Hours: My Active Orders 08/23/20 13:10 Insulin Aspart [NovoLOG] See Protocol SUBCUT TIDAC 08/24/20 11:08 guaiFENesin [Mucus Relief] 400 mg PO Q4H PRN - Plan Plan:: 60 y/o dhara is being treated for AHRF 2/2 COVID 19. 1. COVID- continue with remdesivir, completed 2 units Covalescent FFP, continue daily 6 mg dexamethasone, Q4HRRT combivent, Levaquin. Wean O2 as tolerated. Currently 3L O2, Lovenoz 40 subq Q24, Tessalon pearls and Mucinex for cough 2. Hyperglycemia- improved 190 this morning after being changes to the moderate dose sliding scale. Likely elevated due reactive response to steroids. 3. Mild transaminitis: Resolved. Will continue to monitor with daily a.m cmp since pt on Remdesivir. 4. MARILUZ- BUN 37, Cr 1.3-avoid nephrotoxic agents. 5. Cough- avoid having fluid overload 20 lasix,Tessalon pearls, Mucinex 400g PRN I have seen and evaluated the patient and agree with the residents note unless specified in my note
[2020-08-24] MEDS: Enoxaparin 40 MG/0.4 ML Syringe SUBCUT SCH (18:13)
[2020-08-24] MEDS: Montelukast 10 MG Tab PO SCH (20:26)
[2020-08-24] MEDS: Levofloxacin/Dextrose 5%-Water 750 MG in Premix Bag 1 BAG IV SCH (20:28)
[2020-08-24] MEDS: REMDESIVIR (EUA) 100 MG in Sodium Chloride 0.9% 100 ML IV SCH (22:19)
[2020-08-25] MEDS: Albuterol/Ipratropium 3.0-0.5 MG/3 ML Neb Soln NEB SCH ×6 (01:47→21:50)
[2020-08-25 07:51] VITALS: PULSE 96
[2020-08-25] MEDS: Insulin Aspart 100 Units/ML 3 ML Pen SUBCUT SCH ×3 (08:06→17:46)
[2020-08-25] MEDS: Pantoprazole 40 MG Tab.CR PO SCH (08:08)
[2020-08-25] MEDS: Naproxen 500 MG Tab PO SCH ×2 (08:08→20:17)
[2020-08-25] MEDS: Allopurinol 100 MG Tab PO SCH (08:08)
[2020-08-25] MEDS: Dexamethasone 4 MG Tab PO SCH (08:09)
[2020-08-25] MEDS: Losartan 50 MG Tab PO SCH (08:09)
[2020-08-25] MEDS: Hydrochlorothiazide 25 MG Tab PO SCH (08:09)
--- NOTE | 2020-08-25 09:17 | PCM.PN ---
- General Info Date of Service: 08/25/20 Subjective Update: Reports SOB has improved but still has cough. No fevers, chills, nausea or vomiting overnight. - Patient Data Vitals - Most Recent: Last Vital Signs Temp 36.7 C 08/25/20 07:50 Pulse 96 08/25/20 07:50 Resp 20 08/25/20 07:50 BP 132/78 08/25/20 08:09 Pulse Ox 93 L 08/25/20 07:50 Weight - Most Recent: 90.718 kg I&O - Last 24 Hours: Intake & Output 08/24/20 08/25/20 08/25/20 22:59 06:59 14:59 Intake Total 850 1050 Output Total 1000 900 Balance -150 150 Lab Results Last 24 Hours: Laboratory Results - last 24 hr 08/24/20 08/24/20 08/25/20 Range/Units 11:50 17:07 05:15 WBC 6.99 (4.0-11.0) K/uL RBC 3.99 L (4.50-5.90) M/uL Hgb 11.9 L (13.0-17.0) g/dL Hct 36.4 L (38.0-50.0) % MCV 91.2 (80.0-98.0) fL MCH 29.8 (27.0-32.0) pg MCHC 32.7 (31.0-37.0) g/dL RDW Std Deviation 41.1 (28.0-62.0) fl RDW Coeff of [place] 12 (11.0-15.0) % Plt Count 336 (150-400) K/uL MPV 10.10 (7.40-12.00) fL Neut % (Auto) 71.0 (48.0-80.0) % Lymph % (Auto) 21.6 (16.0-40.0) % [place] % (Auto) 7.0 (0.0-15.0) % Eos % (Auto) 0.3 (0.0-7.0) % Baso % (Auto) 0.1 (0.0-1.5) % Neut # (Auto) 5.0 (1.4-5.7) K/uL Lymph # (Auto) 1.5 (0.6-2.4) K/uL [place] # (Auto) 0.5 (0.0-0.8) K/uL Eos # (Auto) 0.0 (0.0-0.7) K/uL Baso # (Auto) 0.0 (0.0-0.1) K/uL Nucleated RBC % 0.0 /100WBC Nucleated RBCs # 0 K/uL Sodium (136-148) mmol/L Potassium (3.5-5.1) mmol/L Chloride (98-107) mmol/L Carbon Dioxide (21.0-32.0) mmol/L BUN (7.0-18.0) mg/dL Creatinine (0.8-1.3) mg/dL Est Cr Clr Drug Dosing mL/min Estimated GFR (MDRD) ml/min Glucose (74-106) mg/dL POC Glucose 299 H 348 H (60-110) mg/dL Calcium (8.5-10.1) mg/dL Phosphorus (2.6-4.7) mg/dL Magnesium (1.8-2.4) mg/dL Total Bilirubin (0.2-1.0) mg/dL AST (15-37) IU/L ALT (14-63) IU/L Alkaline Phosphatase (46-116) U/L Total Protein (6.4-8.2) g/dL Albumin (3.4-5.0) g/dL Globulin (2.6-4.0) g/dL Albumin/Globulin Ratio (0.9-1.6) 08/25/20 08/25/20 Range/Units 05:15 08:04 WBC (4.0-11.0) K/uL RBC (4.50-5.90) M/uL Hgb (13.0-17.0) g/dL Hct (38.0-50.0) % MCV (80.0-98.0) fL MCH (27.0-32.0) pg MCHC (31.0-37.0) g/dL RDW Std Deviation (28.0-62.0) fl RDW Coeff of [place] (11.0-15.0) % Plt Count (150-400) K/uL MPV (7.40-12.00) fL Neut % (Auto) (48.0-80.0) % Lymph % (Auto) (16.0-40.0) % [place] % (Auto) (0.0-15.0) % Eos % (Auto) (0.0-7.0) % Baso % (Auto) (0.0-1.5) % Neut # (Auto) (1.4-5.7) K/uL Lymph # (Auto) (0.6-2.4) K/uL [place] # (Auto) (0.0-0.8) K/uL Eos # (Auto) (0.0-0.7) K/uL Baso # (Auto) (0.0-0.1) K/uL Nucleated RBC % /100WBC Nucleated RBCs # K/uL Sodium 135 L (136-148) mmol/L Potassium 4.0 (3.5-5.1) mmol/L Chloride 98 (98-107) mmol/L Carbon Dioxide 30.0 (21.0-32.0) mmol/L BUN 36 H (7.0-18.0) mg/dL Creatinine 1.3 (0.8-1.3) mg/dL Est Cr Clr Drug Dosing 57.73 mL/min Estimated GFR (MDRD) 56.1 ml/min Glucose 183 H (74-106) mg/dL POC Glucose 185 H (60-110) mg/dL Calcium 9.1 (8.5-10.1) mg/dL Phosphorus 4.3 (2.6-4.7) mg/dL Magnesium 1.9 (1.8-2.4) mg/dL Total Bilirubin 0.4 (0.2-1.0) mg/dL AST 36 (15-37) IU/L ALT 85 H (14-63) IU/L Alkaline Phosphatase 47 (46-116) U/L Total Protein 7.3 (6.4-8.2) g/dL Albumin 3.0 L (3.4-5.0) g/dL Globulin 4.3 H (2.6-4.0) g/dL Albumin/Globulin Ratio 0.7 L (0.9-1.6) Carlos Results Last 24 Hours: Microbiology 08/21/20 21:43 Aerobic Blood Culture - Preliminary Blood - Venous - Lab Draw NO GROWTH AFTER 3 DAYS Anaerobic Blood Culture - Preliminary NO GROWTH AFTER 3 DAYS 08/21/20 21:37 Aerobic Blood Culture - Preliminary Blood - Venous NO GROWTH AFTER 3 DAYS Anaerobic Blood Culture - Preliminary NO GROWTH AFTER 3 DAYS Med Orders - Current: Current Medications Albuterol/Ipratropium (Duoneb 3.0-0.5 Mg/3 Ml) 3 ml NEB Q4HRRT [facility] Last Admin: 08/25/20 06:09 Dose: 3 ml Documented by: Allopurinol (Zyloprim) 100 mg PO DAILY [facility] Last Admin: 08/25/20 08:08 Dose: 100 mg Documented by: Benzonatate (Tessalon Perles) 100 mg PO TID PRN PRN Reason: Cough Last Admin: 08/24/20 21:38 Dose: 100 mg Documented by: Dexamethasone (Dexamethasone) 6 mg PO DAILY [facility] Last Admin: 08/25/20 08:09 Dose: 6 mg Documented by: Dextrose/Water (Dextrose 50% In Water) 50 ml IV ASDIRECTED PRN PRN Reason: Hypoglycemia Enoxaparin Sodium (Lovenox) 40 mg SUBCUT Q24H [facility] Last Admin: 08/24/20 18:13 Dose: 40 mg Documented by: Glucagon (Glucagen) 1 mg IM ASDIRECTED PRN PRN Reason: Hypoglycemia Guaifenesin (Mucus Relief) 400 mg PO Q4H PRN PRN Reason: Cough Last Admin: 08/24/20 20:26 Dose: 400 mg Documented by: Hydrochlorothiazide (Hydrochlorothiazide) 25 mg PO DAILY [facility] Last Admin: 08/25/20 08:09 Dose: 25 mg Documented by: Levofloxacin/Dextrose 750 mg/ (Premix) 150 mls @ 100 mls/hr IV Q24H [facility] Last Admin: 08/24/20 20:28 Dose: 100 mls/hr Documented by: Remdesivir 100 mg/ Sodium (Chloride) 100 mls @ 100 mls/hr IV Q24H [facility] Stop: 08/25/20 23:59 Last Admin: 08/24/20 22:19 Dose: 100 mls/hr Documented by: Insulin Aspart (Novolog) 0 unit SUBCUT TIDAC [facility]; Protocol Last Admin: 08/25/20 08:06 Dose: 2 units Documented by: Losartan Potassium (Cozaar) 100 mg PO DAILY [facility] Last Admin: 08/25/20 08:09 Dose: 100 mg Documented by: Montelukast Sodium (Singulair) 10 mg PO BEDTIME [facility] Last Admin: 08/24/20 20:26 Dose: 10 mg Documented by: Naproxen (Naprosyn) 500 mg PO BID [facility] Last Admin: 08/25/20 08:08 Dose: 500 mg Documented by: Ondansetron HCl (Zofran Odt) 4 mg PO Q4H PRN PRN Reason: nausea, able to take PO Pantoprazole Sodium (Protonix) 40 mg PO DAILY [facility] Last Admin: 08/25/20 08:08 Dose: 40 mg Documented by: Sodium Chloride (Saline Flush) 10 ml FLUSH ASDIRECTED PRN PRN Reason: Keep Vein Open Last Admin: 08/21/20 15:48 Dose: 10 ml Documented by: Sodium Chloride (Saline Flush) 2.5 ml FLUSH ASDIRECTED PRN PRN Reason: Keep Vein Open Last Admin: 08/21/20 15:48 Dose: 2.5 ml Documented by: Discontinued Medications Dexamethasone (Dexamethasone) 6 mg IVPUSH ONETIME ONE Stop: 08/21/20 15:17 Last Admin: 08/21/20 15:47 Dose: 6 mg Documented by: Fentanyl (Sublimaze) Confirm Administered Dose 100 mcg .ROUTE .STK-MED ONE Stop: 08/22/20 10:45 Last Admin: 08/22/20 13:54 Dose: Not Given Documented by: Furosemide (Lasix) 20 mg IVPUSH NOW ONE Stop: 08/24/20 09:37 Last Admin: 08/24/20 09:52 Dose: 20 mg Documented by: Hydrochlorothiazide (Hydrochlorothiazide) 12.5 mg PO BID [facility] Last Admin: 08/21/20 21:46 Dose: 12.5 mg Documented by: Remdesivir 200 mg/ Sodium (Chloride) 250 mls @ 250 mls/hr IV ONETIME ONE Stop: 08/21/20 23:59 Last Admin: 08/21/20 23:35 Dose: 250 mls/hr Documented by: Lactated Ringer's (Ringers, Lactated) 250 mls @ 999 mls/hr IV .BOLUS ONE Stop: 08/22/20 10:24 Last Admin: 08/22/20 10:37 Dose: 999 mls/hr Documented by: Propofol (Diprivan 100 Ml) Confirm Administered Dose 100 mls @ as directed .ROUTE .STK-MED ONE Stop: 08/22/20 10:45 Last Admin: 08/22/20 13:54 Dose: Not Given Documented by: Insulin Aspart (Novolog) 0 unit SUBCUT TIDAC [facility]; Protocol Last Admin: 08/23/20 14:17 Dose: Not Given Documented by: Losartan Potassium (Cozaar) 50 mg PO BID [facility] Last Admin: 08/21/20 21:46 Dose: 50 mg Documented by: Midazolam HCl (Versed 1 Mg/Ml) Confirm Administered Dose 2 mg .ROUTE .STK-MED ONE Stop: 08/22/20 10:45 Last Admin: 08/22/20 13:56 Dose: Not Given Documented by: Naproxen (Naprosyn) 550 mg PO BID [facility] Naproxen (Naproxen Sodium) 550 mg PO BID [facility] Last Admin: 08/21/20 23:33 Dose: 550 mg Documented by: Naproxen (Naprosyn) 550 mg PO BID [facility] Last Admin: 08/22/20 10:38 Dose: Not Given Documented by: Non-Formulary Medication (Hydrochlorothiazide [Hydrochlorothiazide]) 12.5 mg PO BID [facility] Non-Formulary Medication (Naproxen Sodium [Anaprox Ds]) 550 mg PO BID [facility] Penicillin V Potassium (Veetids) 250 mg PO Q6HR [facility] Last Admin: 08/22/20 06:09 Dose: 250 mg Documented by: Potassium Chloride (Potassium Chloride) 40 meq PO ONETIME ONE Stop: 08/21/20 21:10 Last Admin: 08/21/20 21:45 Dose: 40 meq Documented by: - Exam General: Alert, Oriented, Cooperative, No Acute Distress Lungs: Normal Respiratory Effort, Other (mild rales in lung bases b/l) Cardiovascular: Regular Rate, Regular Rhythm GI/Abdominal Exam: Normal Bowel Sounds, Soft, Non-Tender, No Distention Extremities: Normal Inspection, No Pedal Edema Sepsis Event Note - Evaluation Sepsis Screening Result: No Definite Risk - Focused Exam Vital Signs: Vital Signs Temp Pulse Resp BP BP Pulse Ox 08/25/20 08:09 132/78 08/25/20 07:50 36.7 C 96 20 132/78 93 L 08/25/20 05:00 36.6 C 86 20 128/81 96 08/25/20 00:00 36.8 C 89 20 114/71 93 L - Problem List & Annotations (1) Acute hypoxemic respiratory failure due to COVID-19 SNOMED Code(s): 655001918 Code(s): U07.1 - COVID-19; J96.01 - ACUTE RESPIRATORY FAILURE WITH HYPOXIA Status: Acute Current Visit: Yes (2) COVID-19 SNOMED Code(s): 959228384 Code(s): U07.1 - COVID-19 Status: Acute Current Visit: No - Problem List Review Problem List Initiated/Reviewed/Updated: Yes - My Orders Last 24 Hours: My Active Orders 08/24/20 09:34 Transfer Patient (Change bed) [ADT] Routine 08/24/20 09:35 Telemetry Monitoring [Cardiac Monitoring] [RC] Q8H - Plan Plan:: Assessment and Plan: 1. Acute hypoxic respiratory failure secondary to COVID-19: - Will attempt to wean oxygen as tolerated. Will continue with remdesivir, dexamethasone, Combivent and Levaquin. Patient on prophylactic Lovenox 40 subcut qd. Patient received 2 units of convalescent plasma. - PT has been consulted. 2. Diabetes mellitus type II: - Blood sugars and are likely elevated due reactive response to steroids. - Novolog medium-dose SSI. 3. Mild transaminitis: - Will continue to monitor. 4. MARILUZ, improved. 5. Past medical history of HTN and gout: - Continue home medications.
[2020-08-25] MEDS ORDERED: Furosemide 40 MG/4 ML VIAL IVPUSH ONE (09:57)
[2020-08-25] MEDS: Enoxaparin 40 MG/0.4 ML Syringe SUBCUT SCH (19:54)
[2020-08-25] MEDS: Levofloxacin/Dextrose 5%-Water 750 MG in Premix Bag 1 BAG IV SCH (20:11)
[2020-08-25] MEDS: Montelukast 10 MG Tab PO SCH (20:17)
[2020-08-25] MEDS: Benzonatate 100 MG Cap PO PRN (21:55)
[2020-08-25] MEDS: REMDESIVIR (EUA) 100 MG in Sodium Chloride 0.9% 100 ML IV SCH (22:02)
[2020-08-26] MEDS: Albuterol/Ipratropium 3.0-0.5 MG/3 ML Neb Soln NEB SCH ×4 (01:28→13:42)
[2020-08-26 06:20] LABS: CARBON DIOXIDE,CO2 30.6 mmol/L (21.0-32.0); POTASSIUM,K 4.3 mmol/L (3.5-5.1)
[2020-08-26] MEDS: Benzonatate 100 MG Cap PO PRN (06:28)
[2020-08-26] MEDS: Naproxen 500 MG Tab PO SCH (09:24)
[2020-08-26] MEDS: Hydrochlorothiazide 25 MG Tab PO SCH (09:24)
[2020-08-26] MEDS: Losartan 50 MG Tab PO SCH (09:25)
[2020-08-26] MEDS: Dexamethasone 4 MG Tab PO SCH (09:25)
[2020-08-26] MEDS: Allopurinol 100 MG Tab PO SCH (09:25)
[2020-08-26] MEDS: Pantoprazole 40 MG Tab.CR PO SCH (09:25)
[2020-08-26] MEDS: Insulin Aspart 100 Units/ML 3 ML Pen SUBCUT SCH ×2 (09:27→12:09)
[2020-08-26] MEDS ORDERED: Lactated Ringers 250 ML IV SCH (10:00)
[2020-08-26 12:04] VITALS: BP 111/63
--- NOTE | 2020-08-26 12:49 | PCM.DCSUM1 ---
Discharge Summary - Hospital Course Brief History: Pt is a 60 y/o manwith a PMHx of HTN, DM, Angina, and Gout. Presents with worsening of s.o.b and cough since being tested positive for COVID 19 4x days ago. Pt previously started on dexamethasone but no oxygen. Per chart reveiew. Pt was able to provide very limited history. Onset of Symptoms: Reports: Gradual (since 4 days) Diagnosis: Stroke: No - Discharge Data Discharge Date: 08/26/20 Discharge Disposition: Home, Self-Care 01 Condition: Stable - Referral to Home Health Primary Care Physician: PCP None - Discharge Diagnosis/Problem(s) (1) Acute hypoxemic respiratory failure due to COVID-19 SNOMED Code(s): 068263824 ICD Code: U07.1 - COVID-19; J96.01 - ACUTE RESPIRATORY FAILURE WITH HYPOXIA Status: Acute (2) Acute hypoxemic respiratory failure due to COVID-19 SNOMED Code(s): 918703493 ICD Code: U07.1 - COVID-19; J96.01 - ACUTE RESPIRATORY FAILURE WITH HYPOXIA Status: Acute (3) Transaminitis SNOMED Code(s): 407386587, 461774124 ICD Code: R74.01 - ELEVATION OF LEVELS OF LIVER TRANSAMINASE LEVELS Status: Acute - Patient Summary/Data Consults: Consultations 08/25/20 09:58 Consult to Physical Therapy [PT Evaluation and Treatment] [CONS] Routine Hospital Course: Admitted fot COVID 19 related Acute Hypoxic respiratory failure. Given all appropriate steroids, Combivent, supplemental oxygen , weaned as tolerated with Remdesivir and 2 units Convalescent Plasma. Pt states he feels much better and would like to go home. Pt was on 2L this morning, therefore sent home with home oxygen due to COVID 19. Given all appropriate medications and advised to see PCP closely. Also to return if his Oxygen requirements increase. - Discharge Plan *PRESCRIPTION DRUG MONITORING PROGRAM REVIEWED*: Not Applicable *COPY OF PRESCRIPTION DRUG MONITORING REPORT IN PATIENT VANESSA: Not Applicable Prescriptions/Med Rec: Aspirin 81 mg PO DAILY #30 tab.chew dexAMETHasone [Decadron] 6 mg PO DAILY 5 Days #5 tablet levoFLOXacin [Levaquin] 750 mg PO DAILY #5 tab guaiFENesin [Mucus Relief] 400 mg PO Q4H PRN #30 tablet PRN Reason: Cough Home Medications: Home Meds Pantoprazole Sodium [Protonix] 40 mg PO DAILY #30 tablet. 11/03/15 [Rx] Allopurinol [Zyloprim] 100 mg PO DAILY 12/09/19 [History] Fenofibrate,Micronized [Fenofibrate] 134 mg PO DAILY 12/09/19 [History] Montelukast Sodium 10 mg PO BEDTIME 12/09/19 [History] Nabumetone [Relafen Ds] 500 mg PO BID PRN 12/09/19 [History] metFORMIN HCl [Metformin HCl] 1,000 mg PO BID 12/09/19 [History] Naproxen Sodium [Anaprox DS] 550 mg PO BID #20 tab 03/30/20 [Rx] Acetaminophen 1,000 mg PO Q8HR #60 tablet 05/16/20 [Rx] Chlorpheniramine Maleate [Allergy Relief] 4 mg PO Q6HR PRN 5 Days #30 tablet 08/18/20 [Rx] Losartan/Hydrochlorothiazide [Losartan-HCTZ 50-12.5 MG] 2 tab PO DAILY 08/22/20 [History] Aspirin 81 mg PO DAILY #30 tab.chew 08/26/20 [Rx] dexAMETHasone [Decadron] 6 mg PO DAILY 5 Days #5 tablet 08/26/20 [Rx] guaiFENesin [Mucus Relief] 400 mg PO Q4H PRN #30 tablet 08/26/20 [Rx] levoFLOXacin [Levaquin] 750 mg PO DAILY #5 tab 08/26/20 [Rx] Patient Handouts: COVID-19 Frequently Asked Questions, COVID-19, COVID-19: How to Protect Yourself and Others - CDC, Acute Respiratory Failure, Adult, Prevent the Spread of COVID-19 if You Are Sick - CDC Referrals: Jesenia Kolb MD [Physician] - (Please make an appointment with her within 2 weeks of discharge.) - Discharge Summary/Plan Comment DC Time >30 min.: No - Patient Data Vitals - Most Recent: Last Vital Signs Temp 98.2 F 08/26/20 12:00 Pulse 96 08/25/20 07:50 Resp 19 08/26/20 12:00 BP 111/63 08/26/20 12:00 Pulse Ox 93 L 08/26/20 12:00 Weight - Most Recent: 200 lb I&O - Last 24 hours: Intake & Output 08/25/20 08/26/20 08/26/20 23:59 06:59 14:59 Intake Total 250 Output Total Balance 250 Lab Results - Last 24 hrs: Laboratory Results - last 24 hr 08/25/20 08/26/20 08/26/20 Range/Units 17:43 05:43 05:43 WBC 8.98 (4.0-11.0) K/uL RBC 4.21 L (4.50-5.90) M/uL Hgb 12.6 L (13.0-17.0) g/dL Hct 38.0 (38.0-50.0) % MCV 90.3 (80.0-98.0) fL MCH 29.9 (27.0-32.0) pg MCHC 33.2 (31.0-37.0) g/dL RDW Std Deviation 39.6 (28.0-62.0) fl RDW Coeff of Burton 12 (11.0-15.0) % Plt Count 347 (150-400) K/uL MPV 9.70 (7.40-12.00) fL Add Manual Diff YES Neutrophils % (Manual) 65 (48.0-80.0) % Lymphocytes % (Manual) 25 (16.0-40.0) % Monocytes % (Manual) 7 (0.0-15.0) % Eosinophils % (Manual) 1 (0.0-7.0) % Myelocytes % 2 % Nucleated RBC % 0.0 /100WBC Absolute Seg Neuts 5.8 H (1.4-5.7) Lymphocytes # (Manual) 2.2 (0.6-2.4) Monocytes # (Manual) 0.6 (0.0-0.8) Eosinophils # (Manual) 0.1 (0.0-0.7) Absolute Myelocytes 0.2 Nucleated RBCs # 0 K/uL Sodium 134 L (136-148) mmol/L Potassium 4.3 (3.5-5.1) mmol/L Chloride 96 L (98-107) mmol/L Carbon Dioxide 30.6 (21.0-32.0) mmol/L BUN 39 H (7.0-18.0) mg/dL Creatinine 1.5 H (0.8-1.3) mg/dL Est Cr Clr Drug Dosing 50.03 mL/min Estimated GFR (MDRD) 47.6 ml/min Glucose 194 H (74-106) mg/dL POC Glucose 338 H (60-110) mg/dL Calcium 9.0 (8.5-10.1) mg/dL Phosphorus 4.6 (2.6-4.7) mg/dL Magnesium 2.0 (1.8-2.4) mg/dL Total Bilirubin 0.6 (0.2-1.0) mg/dL AST 32 (15-37) IU/L ALT 78 H (14-63) IU/L Alkaline Phosphatase 53 (46-116) U/L Total Protein 7.4 (6.4-8.2) g/dL Albumin 3.1 L (3.4-5.0) g/dL Globulin 4.3 H (2.6-4.0) g/dL Albumin/Globulin Ratio 0.7 L (0.9-1.6) 08/26/20 08/26/20 Range/Units 06:33 11:44 WBC (4.0-11.0) K/uL RBC (4.50-5.90) M/uL Hgb (13.0-17.0) g/dL Hct (38.0-50.0) % MCV (80.0-98.0) fL MCH (27.0-32.0) pg MCHC (31.0-37.0) g/dL RDW Std Deviation (28.0-62.0) fl RDW Coeff of Burton (11.0-15.0) % Plt Count (150-400) K/uL MPV (7.40-12.00) fL Add Manual Diff Neutrophils % (Manual) (48.0-80.0) % Lymphocytes % (Manual) (16.0-40.0) % Monocytes % (Manual) (0.0-15.0) % Eosinophils % (Manual) (0.0-7.0) % Myelocytes % % Nucleated RBC % /100WBC Absolute Seg Neuts (1.4-5.7) Lymphocytes # (Manual) (0.6-2.4) Monocytes # (Manual) (0.0-0.8) Eosinophils # (Manual) (0.0-0.7) Absolute Myelocytes Nucleated RBCs # K/uL Sodium (136-148) mmol/L Potassium (3.5-5.1) mmol/L Chloride (98-107) mmol/L Carbon Dioxide (21.0-32.0) mmol/L BUN (7.0-18.0) mg/dL Creatinine (0.8-1.3) mg/dL Est Cr Clr Drug Dosing mL/min Estimated GFR (MDRD) ml/min Glucose (74-106) mg/dL POC Glucose 192 H 281 H (60-110) mg/dL Calcium (8.5-10.1) mg/dL Phosphorus (2.6-4.7) mg/dL Magnesium (1.8-2.4) mg/dL Total Bilirubin (0.2-1.0) mg/dL AST (15-37) IU/L ALT (14-63) IU/L Alkaline Phosphatase (46-116) U/L Total Protein (6.4-8.2) g/dL Albumin (3.4-5.0) g/dL Globulin (2.6-4.0) g/dL Albumin/Globulin Ratio (0.9-1.6) SEAN Results - Last 24 hrs: Microbiology 08/21/20 21:43 Aerobic Blood Culture - Preliminary Blood - Venous - Lab Draw NO GROWTH AFTER 4 DAYS Anaerobic Blood Culture - Preliminary NO GROWTH AFTER 4 DAYS 08/21/20 21:37 Aerobic Blood Culture - Preliminary Blood - Venous NO GROWTH AFTER 4 DAYS Anaerobic Blood Culture - Preliminary NO GROWTH AFTER 4 DAYS Med Orders - Current: Current Medications Albuterol/Ipratropium (Duoneb 3.0-0.5 Mg/3 Ml) 3 ml NEB Q4HRRT [facility] Last Admin: 08/26/20 10:26 Dose: 3 ml Documented by: Allopurinol (Zyloprim) 100 mg PO DAILY [facility] Last Admin: 08/26/20 09:25 Dose: 100 mg Documented by: Benzonatate (Tessalon Perles) 100 mg PO TID PRN PRN Reason: Cough Last Admin: 08/26/20 06:28 Dose: 100 mg Documented by: Dexamethasone (Dexamethasone) 6 mg PO DAILY [facility] Last Admin: 08/26/20 09:25 Dose: 6 mg Documented by: Dextrose/Water (Dextrose 50% In Water) 50 ml IV ASDIRECTED PRN PRN Reason: Hypoglycemia Enoxaparin Sodium (Lovenox) 40 mg SUBCUT Q24H [facility] Last Admin: 08/25/20 19:54 Dose: 40 mg Documented by: Glucagon (Glucagen) 1 mg IM ASDIRECTED PRN PRN Reason: Hypoglycemia Guaifenesin (Mucus Relief) 400 mg PO Q4H PRN PRN Reason: Cough Last Admin: 08/26/20 04:20 Dose: 400 mg Documented by: Hydrochlorothiazide (Hydrochlorothiazide) 25 mg PO DAILY [facility] Last Admin: 08/26/20 09:24 Dose: 25 mg Documented by: Levofloxacin/Dextrose 750 mg/ (Premix) 150 mls @ 100 mls/hr IV Q24H [facility] Last Admin: 08/25/20 20:11 Dose: 100 mls/hr Documented by: Lactated Ringer's (Ringers, Lactated) 250 mls @ 999 mls/hr IV ASDIRECTED [facility] Last Admin: 08/26/20 11:03 Dose: 999 mls/hr Documented by: Insulin Aspart (Novolog) 0 unit SUBCUT TIDAC [facility]; Protocol Last Admin: 08/26/20 12:09 Dose: 9 units Documented by: Losartan Potassium (Cozaar) 100 mg PO DAILY [facility] Last Admin: 08/26/20 09:25 Dose: 100 mg Documented by: Montelukast Sodium (Singulair) 10 mg PO BEDTIME [facility] Last Admin: 08/25/20 20:17 Dose: 10 mg Documented by: Naproxen (Naprosyn) 500 mg PO BID [facility] Last Admin: 08/26/20 09:24 Dose: 500 mg Documented by: Ondansetron HCl (Zofran Odt) 4 mg PO Q4H PRN PRN Reason: nausea, able to take PO Pantoprazole Sodium (Protonix) 40 mg PO DAILY [facility] Last Admin: 08/26/20 09:25 Dose: 40 mg Documented by: Sodium Chloride (Saline Flush) 10 ml FLUSH ASDIRECTED PRN PRN Reason: Keep Vein Open Last Admin: 08/21/20 15:48 Dose: 10 ml Documented by: Sodium Chloride (Saline Flush) 2.5 ml FLUSH ASDIRECTED PRN PRN Reason: Keep Vein Open Last Admin: 08/21/20 15:48 Dose: 2.5 ml Documented by: Discontinued Medications Dexamethasone (Dexamethasone) 6 mg IVPUSH ONETIME ONE Stop: 08/21/20 15:17 Last Admin: 08/21/20 15:47 Dose: 6 mg Documented by: Fentanyl (Sublimaze) Confirm Administered Dose 100 mcg .ROUTE .STK-MED ONE Stop: 08/22/20 10:45 Last Admin: 08/22/20 13:54 Dose: Not Given Documented by: Furosemide (Lasix) 20 mg IVPUSH NOW ONE Stop: 08/24/20 09:37 Last Admin: 08/24/20 09:52 Dose: 20 mg Documented by: Furosemide (Lasix) 20 mg IVPUSH NOW ONE Stop: 08/25/20 09:58 Last Admin: 08/25/20 11:18 Dose: 20 mg Documented by: Hydrochlorothiazide (Hydrochlorothiazide) 12.5 mg PO BID [facility] Last Admin: 08/21/20 21:46 Dose: 12.5 mg Documented by: Remdesivir 200 mg/ Sodium (Chloride) 250 mls @ 250 mls/hr IV ONETIME ONE Stop: 08/21/20 23:59 Last Admin: 08/21/20 23:35 Dose: 250 mls/hr Documented by: Remdesivir 100 mg/ Sodium (Chloride) 100 mls @ 100 mls/hr IV Q24H RICK Stop: 08/25/20 23:59 Last Admin: 08/25/20 22:02 Dose: 100 mls/hr Documented by: Lactated Ringer's (Ringers, Lactated) 250 mls @ 999 mls/hr IV .BOLUS ONE Stop: 08/22/20 10:24 Last Admin: 08/22/20 10:37 Dose: 999 mls/hr Documented by: Propofol (Diprivan 100 Ml) Confirm Administered Dose 100 mls @ as directed .ROUTE .STK-MED ONE Stop: 08/22/20 10:45 Last Admin: 08/22/20 13:54 Dose: Not Given Documented by: Insulin Aspart (Novolog) 0 unit SUBCUT TIDAC [facility]; Protocol Last Admin: 08/23/20 14:17 Dose: Not Given Documented by: Losartan Potassium (Cozaar) 50 mg PO BID [facility] Last Admin: 08/21/20 21:46 Dose: 50 mg Documented by: Midazolam HCl (Versed 1 Mg/Ml) Confirm Administered Dose 2 mg .ROUTE .STK-MED ONE Stop: 08/22/20 10:45 Last Admin: 08/22/20 13:56 Dose: Not Given Documented by: Naproxen (Naprosyn) 550 mg PO BID [facility] Naproxen (Naproxen Sodium) 550 mg PO BID [facility] Last Admin: 08/21/20 23:33 Dose: 550 mg Documented by: Naproxen (Naprosyn) 550 mg PO BID [facility] Last Admin: 08/22/20 10:38 Dose: Not Given Documented by: Non-Formulary Medication (Hydrochlorothiazide [Hydrochlorothiazide]) 12.5 mg PO BID [facility] Non-Formulary Medication (Naproxen Sodium [Anaprox Ds]) 550 mg PO BID [facility] Penicillin V Potassium (Veetids) 250 mg PO Q6HR [facility] Last Admin: 08/22/20 06:09 Dose: 250 mg Documented by: Potassium Chloride (Potassium Chloride) 40 meq PO ONETIME ONE Stop: 08/21/20 21:10 Last Admin: 08/21/20 21:45 Dose: 40 meq Documented by:
== END 2020-08-26 14:10 | disposition home or self-care (01) | DRG 177 ==
LOC: MW.ED 11:24 → MW.ICU 20:50
PROVIDERS: ADMIT Student in an Organized Health Care Education/Training Program; ATTEND Student in an Organized Health Care Education/Training Program
PROC: XW033E5 Introduction of Remdesivir Anti-infective into Peripheral Vein, Percutaneous Approach, New Technology Group 5 (ICD-10-PCS; principal; 2020-08-21)
PROC: XW13325 Transfusion of Convalescent Plasma (Nonautologous) into Peripheral Vein, Percutaneous Approach, New Technology Group 5 (ICD-10-PCS; 2020-08-21)
PROC: 5A09357 Assistance with Respiratory Ventilation, Less than 24 Consecutive Hours, Continuous Positive Airway Pressure (ICD-10-PCS; 2020-08-21)
DX: U07.1 COVID-19 (principal); J96.01 Acute respiratory failure with hypoxia; E87.1 Hypo-osmolality and hyponatremia; N17.9 Acute kidney failure, unspecified; R74.01 Elevation of levels of liver transaminase levels; I10 Essential (primary) hypertension; E11.9 Type 2 diabetes mellitus without complications; H54.7 Unspecified visual loss; H91.90 Unspecified hearing loss, unspecified ear; K21.9 Gastro-esophageal reflux disease without esophagitis; Z91.048 Other nonmedicinal substance allergy status; E78.00 Pure hypercholesterolemia, unspecified; M10.9 Gout, unspecified; E66.9 Obesity, unspecified; E87.6 Hypokalemia; E87.8 Other disorders of electrolyte and fluid balance, not elsewhere classified; Z90.49 Acquired absence of other specified parts of digestive tract; Z91.09 Other allergy status, other than to drugs and biological substances; Z79.899 Other long term (current) drug therapy; Z79.84 Long term (current) use of oral hypoglycemic drugs; Z68.30 Body mass index [BMI] 30.0-30.9, adult
CPT/HCPCS: 31500; 36415; 71045; 80053; 83605; 83880; 84484; 85025; 85379; 93005; 96374; 99285; J1100; U0002; 36430; 82962; 83735; 84100; 86850; 86900; 86901; 87040; 93010; 94640; 94660; 97161-GP; A9270-GY; J1650; J1815-GY; J1940; J1956; J7050; J7120; J7620-GY; J8540; P9017

== ENCOUNTER 2023-04-09 12:16 | Emergency (ER) | payer MEDICARE, MEDICAID ==
[2023-04-09 14:44] VITALS: BP 139/98; PULSE 68
== END 2023-04-09 14:44 | disposition home or self-care (01) ==
LOC: MW.ED 12:16
DX: M79.661 Pain in right lower leg (principal); I10 Essential (primary) hypertension; K21.9 Gastro-esophageal reflux disease without esophagitis; E11.9 Type 2 diabetes mellitus without complications; M10.9 Gout, unspecified; E66.9 Obesity, unspecified; Z68.30 Body mass index [BMI] 30.0-30.9, adult; Z91.048 Other nonmedicinal substance allergy status; Z79.82 Long term (current) use of aspirin; Z79.899 Other long term (current) drug therapy
CPT/HCPCS: 73590-26-RT; 73590-RT; 73610-26-RT; 73610-RT; 73620-26-RT; 73620-RT; 99282; 99283

== ENCOUNTER 2024-02-16 06:49 | Emergency (ER) | payer MEDICARE, MEDICAID ==
[2024-02-16 07:04] VITALS: BP 144/90; PULSE 83
== END 2024-02-16 07:58 | disposition home or self-care (01) ==
LOC: MW.ED 06:49
DX: M25.512 Pain in left shoulder (principal); I10 Essential (primary) hypertension; E78.00 Pure hypercholesterolemia, unspecified; K21.9 Gastro-esophageal reflux disease without esophagitis; E11.9 Type 2 diabetes mellitus without complications; Z79.82 Long term (current) use of aspirin; Z79.84 Long term (current) use of oral hypoglycemic drugs; Z79.899 Other long term (current) drug therapy; Z91.048 Other nonmedicinal substance allergy status; W55.22XA Struck by cow, initial encounter
CPT/HCPCS: 73030-26-LT; 73030-LT; 73060-26-LT; 73060-LT; 99283